=== PATIENT | female | born 1950 | race Caucasian/White ===

== ENCOUNTER 2020-03-15 10:09 | Outpatient (REF) | payer MEDICARE, OTHER, SELFPAY ==
--- NOTE | 2020-03-15 10:17 | MM_ITS ---
EXAMINATION: MM SCREENING DIGITAL BREAST TOMOSYNTHESIS, BILATERAL CLINICAL INFORMATION: Screening. Asymptomatic. The lifetime risk of breast cancer based on the Tyrer-Cuzick Model is 5.4%. COMPARISON: Mammography: March 10, 2019 and studies dating back to May 15, 2011 TECHNIQUE: Digital breast tomosynthesis is performed in both the craniocaudal and mediolateral oblique views along with computer-aided detection (CAD). Synthesized 2D images are generated from the tomosynthesis. FINDINGS: The breasts are almost entirely fatty (ACR BI-RADS breast composition Category a). There are no significant masses, abnormal calcifications, or other abnormalities. MM/MM tomosynthesis screening BI IMPRESSION: There are no significant changes from prior study. ASSESSMENT: BI-RADS 1: Negative RECOMMENDATION: Routine annual mammography screening. This patient's information was entered into a reminder system with a target due date for their next mammogram.
--- NOTE | 2020-03-15 10:18 | MM_ITS ---
EXAMINATION: BONE DENSITOMETRY CLINICAL INDICATION: Osteopenia of left hip. COMPARISON: Previous BD dated 02/23/2017 and baseline BD dated 04/13/2006. TECHNIQUE: Using a [employer] DXA System (software version: 13.1) manufactured by [employer], dual-energy x-ray absorptiometry was performed of the lumbar spine and left hip. The images are of good technical quality. Summary results are attached. FINDINGS: AP SPINE L1-L2 (excluding L3 and L4): The data of L1-L4 has been changed to exclude the L3 and L4 vertebral bodies, because degenerative changes at these levels may cause overestimation of lumbar spine density. Current: BMD 0.992 g/cm2, Z-score -0.5, T-score -1.4, osteopenia, 4.5% decrease from previous, 8.5% decrease from baseline (<5% change is not significant). Prior: BMD 1.039 g/cm2. Baseline: BMD 1.084 g/cm2. LEFT FEMUR, NECK: Current: BMD 0.871 g/cm2, Z-score 0.0, T-score -1.2, osteopenia. Prior: BMD 0.933 g/cm2. Baseline: BMD 1.004 g/cm2. LEFT FEMUR, TOTAL: Current: BMD 0.794 g/cm2, Z-score -0.8, T-score -1.7, osteopenia, 6.8% decrease from previous, 15.7% decrease from baseline (<5% change is not significant). Prior: BMD 0.852 g/cm2. Baseline: BMD 0.942 g/cm2. IDENTIFIED RISK FACTORS: Osteoporosis, history of fracture (adult), menopause. HISTORY OF FRACTURE: Wrist. MEDICATIONS: Calcium supplements or multivitamin, vitamin D. MM/XR DEXA axial skeleton IMPRESSION: 1. DIAGNOSIS: Osteopenia based on the lowest T-score value of -1.7 in the total femur applying World Health Organization criteria. 2. 10-YEAR FRACTURE RISK PREDICTION, FRAX: Major osteoporotic fracture (clinical spine, forearm, hip or shoulder) 13.9%. Hip fracture 1.6%. 3. Treatment Recommendations: NOF guidelines recommend consideration for treatment in postmenopausal women and men age 50 and older presenting with the following: -A hip or vertebral (clinical or morphometric) fracture. -T-score less than or equal to -2.5 at the femoral neck or spine after appropriate evaluation to exclude secondary causes. -Low bone mass at the hip or spine and a 10-year fracture probability by FRAX of greater than or equal to 3% for hip fracture or greater than or equal to 20% for major osteoporotic fracture based on the [place] adapted WHO algorithm. 4. Other Recommendations: All treatment decisions require clinical judgment and consideration of individual patient factors, including patient preferences, comorbidities, previous drug use, risk factors not captured in the FRAX model (e.g. frailty, falls, vitamin D deficiency, increased bone turnover, interval significant decline in bone density) and possible under or overestimation of fracture risk by FRAX. Additional medical evaluation for secondary cause of low bone mineral density may be appropriate. FUTURE SCAN RECOMMENDATION: People with diagnosed cases of osteoporosis or at high risk for fracture should have regular bone mineral density tests. For patients eligible for Medicare, routine testing is allowed once every 2 years. The testing frequency can be increased to one year for patients who have rapidly progressing disease, those who are receiving or discontinuing medical therapy to restore bone mass, or have additional risk factors.
== END 2020-03-15 10:10 | disposition home or self-care (01) ==
LOC: HO.MAMMO 10:09
PROVIDERS: PCP Internal Medicine; Visit Provider Internal Medicine
DX: M85.852 Other specified disorders of bone density and structure, left thigh (principal); Z12.31 Encounter for screening mammogram for malignant neoplasm of breast
CPT/HCPCS: 77063; 77067; 77080

== ENCOUNTER 2020-04-17 06:56 | Outpatient (REF) | payer MEDICARE, OTHER, SELFPAY ==
[2020-04-17 12:00] LABS: Alanine Aminotransferase 16 U/L (0-31); Anion Gap 15 (12-20); Aspartate Amino Transferase 22 U/L (5-31); Blood Urea Nitrogen 22 mg/dL (9-16); Calcium 9.8 mg/dL (8.4-10.2); Carbon Dioxide 28 mmol/L (22-29); Chloride 103 mmol/L (96-108); Cholesterol 186 mg/dL; Estimated Glomerular Filt Rate 49; Glucose Fasting 79 mg/dL (60-99); HDL Cholesterol 67 mg/dL; LDL Cholesterol Calculated 104 mg/dl; Potassium 4.7 mmol/L (3.3-5.1); Sodium 141 mmol/L (135-145); Triglycerides 79 mg/dL
[2020-04-17 12:11] LABS: Free T4 (Free Thyroxine) 1.04 ng/dL (0.71-1.85); Thyroid Stimulating Hormone 5.41 uIU/mL (0.32-4.0)
[2020-04-18 11:42] LABS: Thyroid Peroxidase Antibodies 152 IU/mL (<9)
== END 2020-04-17 06:57 | disposition home or self-care (01) ==
LOC: HO.HMGCLDS 06:56
PROVIDERS: PCP Internal Medicine; Visit Provider Internal Medicine
DX: E78.5 Hyperlipidemia, unspecified (principal); M85.852 Other specified disorders of bone density and structure, left thigh; E06.3 Autoimmune thyroiditis
CPT/HCPCS: 36415; 80048; 80061; 84439; 84443; 84450; 84460; 86376

== ENCOUNTER 2020-08-08 07:00 | Outpatient (REF) | payer MEDICARE, OTHER, SELFPAY ==
[2020-08-08 11:53] LABS: Alanine Aminotransferase 13 U/L (0-31); Anion Gap 13 (12-20); Aspartate Amino Transferase 22 U/L (5-31); Blood Urea Nitrogen 17 mg/dL (9-16); Calcium 9.2 mg/dL (8.4-10.2); Carbon Dioxide 26 mmol/L (22-29); Chloride 107 mmol/L (96-108); Cholesterol 161 mg/dL; Estimated Glomerular Filt Rate 51; Glucose Fasting 80 mg/dL (60-99); HDL Cholesterol 59 mg/dL; LDL Cholesterol Calculated 90 mg/dl; Potassium 4.4 mmol/L (3.3-5.1); Sodium 142 mmol/L (135-145); Triglycerides 61 mg/dL
[2020-08-08 12:03] LABS: Free T4 (Free Thyroxine) 1.05 ng/dL (0.71-1.85); Thyroid Stimulating Hormone 2.95 uIU/mL (0.32-4.0); Vitamin D 25-OH Total 45.7 ng/mL (>30)
== END 2020-08-08 07:01 | disposition home or self-care (01) ==
LOC: HO.HMGCLDS 07:00
PROVIDERS: PCP Internal Medicine; Visit Provider Internal Medicine
DX: E03.9 Hypothyroidism, unspecified (principal); E78.5 Hyperlipidemia, unspecified; M85.852 Other specified disorders of bone density and structure, left thigh; Z78.0 Asymptomatic menopausal state
CPT/HCPCS: 36415; 80048; 80061; 82306; 84439; 84443; 84450; 84460

== ENCOUNTER 2021-03-24 09:21 | Outpatient (REF) | payer MEDICARE, OTHER, SELFPAY ==
--- NOTE | ~2021-03-24 | MM_ITS ---
EXAMINATION: MM SCREENING DIGITAL BREAST TOMOSYNTHESIS, BILATERAL CLINICAL INFORMATION: Screening. Asymptomatic. The lifetime risk of breast cancer based on the Tyrer-Cuzick Model is 11%. COMPARISON: Mammography: 03/15/2020, 03/10/2019, 03/04/2018 TECHNIQUE: Digital breast tomosynthesis is performed in both the craniocaudal and mediolateral oblique views along with computer-aided detection (CAD). Synthesized 2D images are generated from the tomosynthesis. FINDINGS: The breasts are almost entirely fatty (ACR BI-RADS breast composition Category a). There are no significant masses, abnormal calcifications, or other abnormalities. Background stromal and fibroglandular densities are stable. There is no developing density or interval mass or architectural abnormality. No significant changes. MM/MM tomosynthesis screening BI IMPRESSION: No mammographic evidence of malignancy. ASSESSMENT: BI-RADS 1: Negative RECOMMENDATION: Routine annual mammography screening. This patient's information was entered into a reminder system with a target due date for their next mammogram.
== END 2021-03-24 09:22 | disposition home or self-care (01) ==
LOC: HO.MAMMO 09:21
PROVIDERS: PCP Internal Medicine; Visit Provider Internal Medicine
DX: Z12.31 Encounter for screening mammogram for malignant neoplasm of breast (principal)
CPT/HCPCS: 77063; 77067

== ENCOUNTER 2021-09-18 07:44 | Outpatient (REF) | payer MEDICARE, OTHER, SELFPAY ==
--- NOTE | ~2021-09-18 | XR_ITS ---
EXAMINATION: XR KNEE, LEFT XR KNEE AP STANDING CLINICAL INFORMATION: Pain. COMPARISON: None TECHNIQUE: Lateral and axial views of the left knee were obtained. AP bilateral standing view of the knees was obtained. FINDINGS: Bony mineralization is normal. There is marked narrowing of the medial and patellofemoral joint space compartments of the right knee. The lateral compartment is well-maintained. There is a mild varus configuration. No acute fracture, dislocation or joint effusion is seen. There is a bipartite patella, with smoothly marginated secondary ossification centers at the superolateral portion. No foreign body is seen. The lateral and medial joint space compartments of the right knee are well-maintained and show very mild peripheral osteophyte formation. No varus or valgus configuration of the right knee is demonstrated. XR/XR knee LT 2V IMPRESSION: 1. There is tricompartment osteoarthritic change of the left knee, most pronounced in the medial patellofemoral compartments, where it is severe. There is a secondary mild varus configuration. 2. 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 3. There is minimal osteoarthritic change of the lateral medial joint space compartment of the right knee. 4. No fracture, dislocation or joint effusion is seen.
--- NOTE | ~2021-09-18 | XR_ITS ---
EXAMINATION: XR KNEE, LEFT XR KNEE AP STANDING CLINICAL INFORMATION: Pain. COMPARISON: None TECHNIQUE: Lateral and axial views of the left knee were obtained. AP bilateral standing view of the knees was obtained. FINDINGS: Bony mineralization is normal. There is marked narrowing of the medial and patellofemoral joint space compartments of the right knee. The lateral compartment is well-maintained. There is a mild varus configuration. No acute fracture, dislocation or joint effusion is seen. There is a bipartite patella, with smoothly marginated secondary ossification centers at the superolateral portion. No foreign body is seen. The lateral and medial joint space compartments of the right knee are well-maintained and show very mild peripheral osteophyte formation. No varus or valgus configuration of the right knee is demonstrated. XR/XR knee standing BI IMPRESSION: 1. There is tricompartment osteoarthritic change of the left knee, most pronounced in the medial patellofemoral compartments, where it is severe. There is a secondary mild varus configuration. 2. 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 3. There is minimal osteoarthritic change of the lateral medial joint space compartment of the right knee. 4. No fracture, dislocation or joint effusion is seen.
== END 2021-09-18 07:45 | disposition home or self-care (01) ==
LOC: HO.HOSX 07:44
PROVIDERS: Visit Provider Orthopaedic Surgery
DX: M17.12 Unilateral primary osteoarthritis, left knee (principal)
CPT/HCPCS: 73560; 73565; 99202

== ENCOUNTER 2021-11-25 07:09 | Outpatient (REF) | payer MEDICARE, OTHER, SELFPAY ==
[2021-11-25 11:47] LABS: Alanine Aminotransferase 18 U/L (0-31); Anion Gap 14 (12-20); Aspartate Amino Transferase 27 U/L (5-31); Blood Urea Nitrogen 18 mg/dL (9-16); Calcium 9.5 mg/dL (8.4-10.2); Carbon Dioxide 27 mmol/L (22-29); Chloride 106 mmol/L (96-108); Cholesterol 185 mg/dL; Estimated Glomerular Filt Rate 53; Glucose Fasting 90 mg/dL (60-99); HDL Cholesterol 66 mg/dL; LDL Cholesterol Calculated 106 mg/dl; Potassium 4.6 mmol/L (3.3-5.1); Sodium 142 mmol/L (135-145); Triglycerides 69 mg/dL
[2021-11-25 12:12] LABS: Free T4 (Free Thyroxine) 1.13 ng/dL (0.71-1.85); Thyroid Stimulating Hormone 3.67 uIU/mL (0.32-4.0); Vitamin D 25-OH Total 47.1 ng/mL (>30)
[2021-11-29 10:12] LABS: Thyroid Peroxidase Antibodies 65 IU/mL (<9)
== END 2021-11-25 07:10 | disposition home or self-care (01) ==
LOC: HO.HMGCLDS 07:09
PROVIDERS: PCP Internal Medicine; Visit Provider Internal Medicine
DX: E03.9 Hypothyroidism, unspecified (principal); E78.5 Hyperlipidemia, unspecified; M85.852 Other specified disorders of bone density and structure, left thigh; Z78.0 Asymptomatic menopausal state
CPT/HCPCS: 36415; 80048; 80061; 82306; 84439; 84443; 84450; 84460; 86376

== ENCOUNTER 2022-03-30 08:04 | Outpatient (REF) | payer MEDICARE, OTHER, SELFPAY ==
--- NOTE | ~2022-03-30 | MM_ITS ---
EXAMINATION: MM SCREENING DIGITAL BREAST TOMOSYNTHESIS, BILATERAL CLINICAL INFORMATION: Screening. Asymptomatic. The lifetime risk of breast cancer based on the Tyrer-Cuzick Model is 10%. COMPARISON: Mammography: 03/24/2021, 03/15/2020, 03/10/2019 TECHNIQUE: Digital breast tomosynthesis is performed in both the craniocaudal and mediolateral oblique views along with computer-aided detection (CAD). Synthesized 2D images are generated from the tomosynthesis. FINDINGS: The breasts are almost entirely fatty (ACR BI-RADS breast composition Category a). There are no significant masses, abnormal calcifications, or other abnormalities. Background stromal markings and fibroglandular densities are similar to prior studies. No developing density or architectural abnormality. The axilla are unremarkable. No significant changes. MM/MM tomosynthesis screening BI IMPRESSION: No mammographic evidence of malignancy. ASSESSMENT: BI-RADS 1: Negative RECOMMENDATION: Routine annual mammography screening. This patient's information was entered into a reminder system with a target due date for their next mammogram.
== END 2022-03-30 08:05 | disposition home or self-care (01) ==
LOC: HO.MAMMO 08:04
PROVIDERS: PCP Internal Medicine; Visit Provider Internal Medicine
DX: Z12.31 Encounter for screening mammogram for malignant neoplasm of breast (principal)
CPT/HCPCS: 77063; 77067

== ENCOUNTER 2022-09-14 08:16 | Outpatient (AMB) | payer MEDICARE, OTHER, SELFPAY ==
[2022-09-14 08:25] VITALS: BP 126/86; PULSE 82; O2SAT 99; BMI 33.4
--- NOTE | 2022-09-14 08:25 | A.OFFVIS_ITS ---
Intake Vital Signs 09/14/22 08:25 Height 5 ft 4 in Weight 194 lb 5 oz BMI 33.4 BP 126/86 Blood Pressure Location Lt brachial Position Sitting Pulse 82 Pulse Source Pulse Oximeter Pulse Oximetry (%) 99 Oxygen Delivery Method Room Air Intake Visit Reasons: AWV Intake Note: Pt is here for her AWV Allergies No Known Allergies Allergy (Verified 09/14/22 08:48) Medication List - Last Reconciled 09/14/22 by Audrey Teran MD acetaminophen ER (Tylenol Arthritis Pain) 650 mg PO Q12H cholecalciferol (vitamin D3) 25 mcg PO DAILY collagen (bovine) 100% 1 appl topical DAILY qfsymbvi-qgxgbeg-cyff-lutein tabs PO rosuvastatin 10 mg PO DAILY Synthroid (levothyroxine) 50 mcg PO QAM NS turmeric mg PO HPI AWV HPI Details AWV ? 71-year-old lady presents for initial annual wellness visit.? She has dyslipidemia currently stable controlled on rosuvastatin, Synthroid for her hypothyroidism, which is stable and controlled on present treatment. She is up-to-date with her screening mammogram done 03/30/2022 which showed normal findings, last bone density was done 03/15/2020 which showed presence of osteopenia in both lumbar spine and left femoral neck and left femur. Up-to-date with her screening colonoscopy done 01/19/2017 which showed negative findings, to be repeated again in 2026. Up-to-date with all her COVID vaccination including booster, gets yearly flu shots, up-to-date with her pneumococcal vaccinations and Shingrix as well as Tdap. Latest fasting lipids and fasting blood sugar done 11/25/2021 showed normal results. ? Medical / Social History Reviewed? Past Medical History ?Yes . ? [place] of Care / Care Team list updated ?Yes . ? Surgical/Hospitalization History ?Yes . ? Current Medications (including OTC and supplements) ?Yes . ? Family History ?Yes . ? Tobacco Control form ?Yes . ? AUDIT-C (Alcohol use) form ?Yes . ? Illicit drug use in Social History ?Yes . ? Current diagnosis of depression? ?No ? Appropriate PHQ2/PHQ9 completed ?Yes . ? Data entered by ?Orthopaedic Surgeon and reviewed by provider ? Fall Risk ? Fall History? Have you had any falls with injury in the past year? ?No . ? Have you had two or more falls in the past year? ?No . ? Fall Risk Assessment: ?No falls in the past year . ? HRA filled out by the patient, reviewed by Provider and scanned. ?AWV ? Balance? Romberg ?Yes . ? Tandem walk ?Yes . ? Walk and Turn ?Yes . ? Rise from sit to stand ?Yes . ?Vision? Corrective lens ?Yes ? Vision screen ? Up-to-date, sees Dr Darling ?Hearing? Whisper test ?pass . ?Written Plan?Completed. See Patient Documents.? [facility] Medical History (Updated 09/14/22 @ 08:59 by Audrey Teran MD) Acquired hypothyroidism Dyslipidemia Left radial fracture Osteopenia of left femoral neck Osteopenia of multiple sites Postmenopause Surgical History History of cataract surgery Family History Father No problems noted. Mother Alzheimer's disease Colon cancer Hyperlipidemia Social History Alcohol intake: current Patient Tobacco Use Status: Never used Tobacco Questionnaire Medicare Wellness Checkup [age] What gender do you identify with?: female During the past 4 weeks, how much have you been bothered by emotional problems such as feeling anxious, depressed, irritable, sad or downhearted, and blue?: not at all During the past 4 weeks, has your physical & emotional health limited your social activities with family, friends, neighbors, or groups?: not at all During the past 4 weeks, how much bodily pain have you generally had?: very mild pain During the past 4 weeks, was someone available to help you if you needed & wanted help?: yes, as much as I wanted During the past 4 weeks, what was the hardest physical activity you could do for at least 2 minutes?: moderate Can you get to places out of walking distance without help? (For eg., can you travel alone on buses, taxis or drive your car?): Yes Can you go shopping for groceries or clothes without someone's help?: Yes Can you prepare your own meals?: Yes Can you do your housework without help?: Yes Because of any health problems, do you need the help of another person with your personal care needs such as eating, bathing, dressing or getting around the house?: No Can you handle your own money without help?: Yes During the past 4 weeks, how would you rate your health in general?: good During the past 4 weeks how have things been going for you?: pretty well Are you having difficulties driving your car?: no Do you always fasten your seat belt when you are in a car?: yes, usually During past 4 weeks, have you been bothered by the following: never: Falling or dizzy when standing up, Sexual problems?, Trouble eating well?, Teeth or denture problems? and Problems using the telephone? and seldom: Tiredness or fatigue? Have you fallen 2 or more times in the past year?: No Are you afraid of falling?: No Are you a smoker?: no During the past 4 weeks, how many drinks of wine, beer, or other alcoholic beverages did you have?: 1 drink or less per week Do you exercise for about 20 minutes 3 or more times a week?: no, I usually do not exercise this much Have you been given information to help with the following?: yes: Hazards in your house that might hurt you? and yes: Keeping track of your medications? How often do you have trouble taking medicines the way you have been told to take them?: I always take medicine as prescribed How confident are you that you can control & manage most of your health problems?: very confident What is your race?: White Mini Mental State Exam (MMSE) Orientation What is the (year) (season) (date) (day) (month)?: year (2022), season (Summer), date (09/14/2022), day (Wednesday) and month (August) Where are we (state) (county) (town or city) (hospital) (floor)?: state ([place]), county ([place]), town or city ([place]) and hospital/clinic ([facility]) Score Score: 9 Activity of Daily Living Bathing - sponge bath, tub bath or shower: receives no assistance (gets in/out by self, if usual bathing means Dressing - getting clothes from closets & drawers, including inner/outer garments & fasteners.: gets clothes & gets completely dressed without help Toileting - going to the 'toilet room' for urine/bowel elimination & cleaning self/arranging clothes: goes to toilet room, cleans self, arranges clothes without help Transfer: moves in & out of bed and chair without help (may use support object) Continence: controls urination/bowel movements completely by self Feeding: feeds self without help Total Score: 0 Information obtained from: patient Using telephone: independent Traveling: independent Shopping: independent Preparing meals: independent Housework: independent Taking medicine: independent Managing money: independent PHQ-9 Over the last 2 weeks, how often have you been bothered by any of the following problems? 1. Little interest or pleasure in doing things: not at all 2. Feeling down, depressed, or hopeless: not at all 3. Trouble falling or staying asleep, or sleeping too much: not at all 4. Feeling tired or having little energy: not at all 5. Poor appetite or overeating: not at all 6. Feeling bad about yourself - or that you are a failure or have let yourself or your family down: not at all 7. Trouble concentrating on things, such as reading the newspaper or watching television: not at all 8. Moving or speaking so slowly that other people could have noticed. Or the opposite - being so fidgety or restless that you have been moving around a lot more than usual: not at all 9. Thoughts that you would be better off or of hurting yourself in some way: not at all Total score: 0 Depression Screening Interpretation: Negative 58359 - PHQ-9 Billing: Yes Source: Developed by Drs. Ramón Hou, Yolis Holden, Gordo Alvarado and colleagues, with an educational yadi from [employer]. Physical Exam Vital Signs: Last Vital Signs Pulse 82 09/14/22 08:25 BP 126/86 09/14/22 08:25 Pulse Ox 99 09/14/22 08:25 Oxygen Delivery Method Room Air 09/14/22 08:25 BMI result Body Mass Index 33.4 Assessment & Plan Assessment & Plan (1) Encounter for initial annual wellness visit (AWV) in Medicare patient: Code(s): Z00.00 - Encounter for general adult medical examination without abnormal findings Plan: Medical wellness checklist reviewed, discussed with patient and updated. She is due for repeat colonoscopy in 2026, up-to-date with all her vaccinations and mammogram, bone density scan ordered. Patient already completed already MOLST form will provide a copy of her healthcare proxy. (2) Osteoarthritis of left knee: Code(s): M17.12 - Unilateral primary osteoarthritis, left knee Plan: Takes acetaminophen as needed, continue with regular exercise. (3) Osteopenia of multiple sites: Code(s): M85.89 - Other specified disorders of bone density and structure, multiple sites Plan: Bone density scan ordered to be scheduled together with mammogram 04/01/2023. Continue taking collagen, and vitamin-D supplements as well as adequate calcium from dietary sources, do regular weight-bearing exercises. (4) Acquired hypothyroidism: Code(s): E03.9 - Hypothyroidism, unspecified Plan: Continued on Synthroid 50 mcg daily in a.m., will repeat another thyroid level (5) Dyslipidemia: Code(s): E78.5 - Hyperlipidemia, unspecified Plan: Continue with rosuvastatin mg daily, last fasting lipids were within normal. Will recheck another fasting lipid panel Orders: Orders XR DEXA axial skeleton 04/01/23 M85.89 - Other specified disorders of bone density and structure, multiple sites, Z13.820 - Encounter for screening for ost eoporosis, Z78.0 - Asymptomatic menopausal state, Z87.81 - Personal history of (healed) traumatic fracture Quality Reporting (2019) Depression/Bipolar (159/160/161/177) PHQ-9: Total score: 0 Coding Level of Care Code Medicare First (G0438) Diagnoses Encounter for initial annual wellness visit (AWV) in Medicare patient Z00.00 Osteoarthritis of left knee M17.12 Osteopenia of multiple sites M85.89 Acquired hypothyroidism E03.9 Dyslipidemia E78.5 CPT Codes Advance Care Planning - Time spent: 1-15 minutes, on File ([id number]) Advance Care Planning Advance Care Planning discussion: Completed/Scanned Date of discussion: 09/14/22 Who was present: Patient Forms completed: MOLST (Already scanned in chart has healthcare proxy at home will provide a copy) Time spent: 1-15 minutes, on File Actual minutes spent: 15
== END 2022-09-14 13:24 | disposition home or self-care (01) ==
PROVIDERS: Visit Provider Internal Medicine
DX: Z00.00 Encounter for general adult medical examination without abnormal findings (principal); M17.12 Unilateral primary osteoarthritis, left knee; M85.89 Other specified disorders of bone density and structure, multiple sites; E03.9 Hypothyroidism, unspecified; E78.5 Hyperlipidemia, unspecified
CPT/HCPCS: 1123F; G0438; G0439

== ENCOUNTER 2022-09-18 07:20 | Outpatient (REF) | payer MEDICARE, OTHER, SELFPAY ==
[2022-09-18 15:08] LABS: Alanine Aminotransferase 15 U/L (0-31); Anion Gap 14 (12-20); Aspartate Amino Transferase 23 U/L (5-31); Blood Urea Nitrogen 23 mg/dL (9-16); Calcium 9.7 mg/dL (8.4-10.2); Carbon Dioxide 24 mmol/L (22-29); Chloride 108 mmol/L (96-108); Cholesterol 180 mg/dL; Estimated Glomerular Filt Rate 54; Glucose Fasting 86 mg/dL (60-99); HDL Cholesterol 65 mg/dL; LDL Cholesterol Calculated 102 mg/dl; Potassium 4.3 mmol/L (3.3-5.1); Sodium 142 mmol/L (135-145); Triglycerides 65 mg/dL
[2022-09-18 15:27] LABS: Thyroid Stimulating Hormone 5.53 uIU/mL (0.32-4.0); Vitamin D 25-OH Total 58.4 ng/mL (>30)
== END 2022-09-18 07:21 | disposition home or self-care (01) ==
LOC: HO.HMGCLDS 07:20
PROVIDERS: PCP Internal Medicine; Visit Provider Internal Medicine
DX: E03.9 Hypothyroidism, unspecified (principal); E78.5 Hyperlipidemia, unspecified; M85.89 Other specified disorders of bone density and structure, multiple sites; Z78.0 Asymptomatic menopausal state
CPT/HCPCS: 36415; 80048; 80061; 82306; 84443; 84450; 84460

== ENCOUNTER 2023-03-13 07:22 | Outpatient (REF) | payer MEDICARE, OTHER, SELFPAY ==
[2023-03-13 12:20] LABS: Alanine Aminotransferase 20 U/L (0-31); Aspartate Amino Transferase 27 U/L (5-31); Cholesterol 178 mg/dL (<200); HDL Cholesterol 55 mg/dL (>40); LDL Cholesterol Calculated 104 mg/dL (<100); Triglycerides 95 mg/dL (<150)
[2023-03-13 12:29] LABS: Free T4 (Free Thyroxine) 0.96 ng/dL (0.71-1.85); Thyroid Stimulating Hormone 4.33 uIU/mL (0.32-4.0); Vitamin D 25-OH Total 55.2 ng/mL (>30)
== END 2023-03-13 07:23 | disposition home or self-care (01) ==
LOC: HO.HMGCLDS 07:22
PROVIDERS: PCP Internal Medicine; Visit Provider Internal Medicine
DX: E78.5 Hyperlipidemia, unspecified (principal); M85.89 Other specified disorders of bone density and structure, multiple sites; E03.9 Hypothyroidism, unspecified; Z78.0 Asymptomatic menopausal state
CPT/HCPCS: 36415; 80061; 82306; 84439; 84443; 84450; 84460

== ENCOUNTER 2023-04-01 08:16 | Outpatient (REF) | payer MEDICARE, OTHER, SELFPAY ==
--- NOTE | ~2023-04-01 | MM_ITS ---
EXAMINATION: BONE DENSITOMETRY CLINICAL INDICATION: Osteopenia. COMPARISON: Previous BD dated 03/15/2020 and baseline BD dated 04/13/2006. TECHNIQUE: Using a [employer] DXA System (software version: 13.1) manufactured by [employer], dual-energy x-ray absorptiometry was performed of the lumbar spine and left hip. The images are of good technical quality. Summary results are attached. FINDINGS: LEFT FEMUR, NECK: Current: BMD 0.820 g/cm2, Z-score -0.2, T-score -1.6, osteopenia. Prior: BMD 0.871 g/cm2. Baseline: BMD 1.004 g/cm2. LEFT FEMUR, TOTAL: Current: BMD 0.762 g/cm2, Z-score -0.8, T-score -1.9, osteopenia, 4.0% decrease from previous, 19.1% decrease from baseline (<5% change is not significant). Prior: BMD 0.794 g/cm2. Baseline: BMD 0.942 g/cm2. AP SPINE L1-L2 (excluding L3 and L4): The data of L1-L4 has been changed to exclude the L3 and L4 vertebral bodies, because degenerative sclerosis at these levels may cause overestimation of lumbar spine density. Current: BMD 1.053 g/cm2, Z-score 0.0, T-score -0.9, normal, 6.1% increase from previous, 2.9% decrease from baseline (<5% change is not significant). Prior: BMD 0.992 g/cm2. Baseline: BMD 1.084 g/cm2. IDENTIFIED RISK FACTORS: Menopause, history of fracture (adult). HISTORY OF FRACTURE: Wrist. MEDICATIONS: Multivitamin, vitamin D. MM/XR DEXA axial skeleton IMPRESSION: 1. DIAGNOSIS: Osteopenia based on the lowest T-score value of -1.9 in the total femur applying World Health Organization criteria. 2. 10-YEAR FRACTURE RISK PREDICTION, FRAX: Major osteoporotic fracture (clinical spine, forearm, hip or shoulder) 16.0%. Hip fracture 2.8%. 3. Treatment Recommendations: NOF guidelines recommend consideration for treatment in postmenopausal women and men age 50 and older presenting with the following: -A hip or vertebral (clinical or morphometric) fracture. -T-score less than or equal to -2.5 at the femoral neck or spine after appropriate evaluation to exclude secondary causes. -Low bone mass at the hip or spine and a 10-year fracture probability by FRAX of greater than or equal to 3% for hip fracture or greater than or equal to 20% for major osteoporotic fracture based on the [place] adapted WHO algorithm. 4. Other Recommendations: All treatment decisions require clinical judgment and consideration of individual patient factors, including patient preferences, comorbidities, previous drug use, risk factors not captured in the FRAX model (e.g. frailty, falls, vitamin D deficiency, increased bone turnover, interval significant decline in bone density) and possible under or overestimation of fracture risk by FRAX. Additional medical evaluation for secondary cause of low bone mineral density may be appropriate. FUTURE SCAN RECOMMENDATION: People with diagnosed cases of osteoporosis or at high risk for fracture should have regular bone mineral density tests. For patients eligible for Medicare, routine testing is allowed once every 2 years. The testing frequency can be increased to one year for patients who have rapidly progressing disease, those who are receiving or discontinuing medical therapy to restore bone mass, or have additional risk factors.
== END 2023-04-01 08:17 | disposition home or self-care (01) ==
LOC: HO.MAMMO 08:16
PROVIDERS: PCP Internal Medicine; Visit Provider Internal Medicine
DX: Z12.31 Encounter for screening mammogram for malignant neoplasm of breast (principal); Z13.820 Encounter for screening for osteoporosis; Z78.0 Asymptomatic menopausal state; M85.89 Other specified disorders of bone density and structure, multiple sites; Z87.81 Personal history of (healed) traumatic fracture
CPT/HCPCS: 77063; 77067; 77080

== ENCOUNTER → 2023-04-01 09:00 | Outpatient (BNV) | payer MEDICARE, OTHER, SELFPAY | PROVIDERS: PCP Internal Medicine; Visit Provider Radiology Diagnostic Radiology | DX: Z12.31 Encounter for screening mammogram for malignant neoplasm of breast (principal) | CPT/HCPCS: 77063; 77067 ==

== ENCOUNTER 2023-04-14 10:22 | Outpatient (AMB) | payer MEDICARE, OTHER, SELFPAY ==
[2023-04-14 10:44] VITALS: BP 124/72; PULSE 95; O2SAT 97; BMI 33.3
--- NOTE | 2023-04-14 10:44 | MHC.PC.OV ---
Vital Signs 04/14/23 10:44 Height 5 ft 4 in Weight 194 lb BMI 33.3 BP 124/72 Blood Pressure Location Lt brachial Position Sitting Pulse 95 Pulse Source Pulse Oximeter Pulse Oximetry (%) 97 Intake Visit Reasons: f/u labs Intake Note: Pt is here today for her lab results Allergies No Known Allergies Allergy (Verified 04/14/23 11:08) Medication List - Last Reconciled 04/14/23 by Audrey Teran MD acetaminophen ER (Tylenol Arthritis Pain) 650 mg PO Q12H cholecalciferol (vitamin D3) 25 mcg PO DAILY collagen (bovine) 100% 1 appl topical DAILY xbykbacx-vvtocls-xuoa-lutein tabs PO rosuvastatin 10 mg PO DAILY Synthroid (levothyroxine) 50 mcg PO QAM NS turmeric mg PO Tobacco use date assessed: 04/14/23 Fall risk assessment: No Falls in past year Last assessed Fall Risk: 04/14/23 Dental Screening Dental Screen Date: 04/14/23 Did you have a dental visit in the last 12 months?: Yes Did you have a dental problem in the last 6 months where you did not have access to dental care?: No Was dental information given to patient?: Patient has dentist HPI f/u labs HPI Details 73-year-old lady with hypothyroidism and hyperlipidemia, here today for follow-up. She has been feeling well, stays active but does not walk as much as she was doing during the summer time due to the cold weather, has been compliant with healthy eating habits. Recent fasting labs done showed thyroid levels and cholesterol levels are all within normal limits. She has been compliant with taking her medications [facility] Medical History (Updated 09/14/22 @ 08:59 by Audrey Teran MD) Osteopenia of multiple sites Left radial fracture Postmenopause Osteopenia of left femoral neck Dyslipidemia Acquired hypothyroidism Surgical History History of cataract surgery Family History Father No problems noted. Mother Alzheimer's disease Colon cancer Hyperlipidemia Social History Housing: House Alcohol intake: current Patient Tobacco Use Status: Never used Tobacco service: No Current occupational status: retired Cognitive needs: No Hearing needs: No Vision needs: Yes Questionnaire PHQ-9 Over the last 2 weeks, how often have you been bothered by any of the following problems? 1. Little interest or pleasure in doing things: not at all 2. Feeling down, depressed, or hopeless: not at all 3. Trouble falling or staying asleep, or sleeping too much: not at all 4. Feeling tired or having little energy: not at all 5. Poor appetite or overeating: not at all 6. Feeling bad about yourself - or that you are a failure or have let yourself or your family down: not at all 7. Trouble concentrating on things, such as reading the newspaper or watching television: not at all 8. Moving or speaking so slowly that other people could have noticed. Or the opposite - being so fidgety or restless that you have been moving around a lot more than usual: not at all 9. Thoughts that you would be better off or of hurting yourself in some way: not at all Total score: 0 Depression Screening Interpretation: Negative Depression Screening Done: Yes 08257 - PHQ-9 Billing: Yes Source: Developed by Drs. Ramón Hou, Yolis Holden, Gordo Alvarado and colleagues, with an educational yadi from [employer]. Thrive Questionnaire Date Thrive assessed: 04/14/23 I am a: Patient What is your living situation today?: I have a steady place to live Within the past 12 months, did the food you bought not last and you didn't have the money to get more?: Never true Within the past 12 months, did you worry whether your food would run out before you got money to buy more?: Never true Do you have trouble paying for medicines?: No Do you have trouble getting transportation to medical appointments?: No Do you have trouble paying your heating and electricity bill?: No Do you have trouble taking care of your child, family member or friend?: No Do you have trouble with day-to-day activities such as bathing, preparing meals, shopping, managing finances, etc.?: No Are you currently unemployed and looking for a job?: No Are you interested in more education?: No THRIVE Score: 0 AUDIT C Alcohol Use Questionnaire (AUDIT-C) 1. How often do you have a drink containing alcohol?: Monthly or less 2. How many drinks containing alcohol do you have on a typical day when you are drinking?: 1 or 2 3. How often do you have six or more drinks on one occasion?: Never Total Score: 1 KATE-7 AMB Questionnaire KATE-7 Date KATE - 7 assessed: 04/14/23 Feeling nervous, anxious, or on edge: 0 = Not at all Not being able to stop or control worryin = Not at all Worrying too much about different things: 0 = Not at all Trouble relaxin = Not at all Being so restless that it is hard to sit still: 0 = Not at all Becoming easily annoyed or irritable: 0 = Not at all Feeling afraid as if something awful might happen: 0 = Not at all Total KATE-7 score (0-4 normal; 5-9 mild; 10-14 moderate; 15-21 severe): 0 Source: Developed by Drs. Ramón Hou, Yolis Holden, Gordo Alvarado and colleagues, with an educational yadi from [employer]. KATE-7 Assessment Billing KATE-7 Assessment Tool: KATE-7 Assessment 37022 Review of Systems Const Denies body aches, Denies fatigue, Denies fever(s), Denies headache(s) and Denies weakness ENT Denies dizziness, Denies headache(s), Denies nasal congestion, Denies nasal discharge and Denies sore throat Card Denies chest pain, Denies lightheadedness, Denies palpitations and Denies dyspnea Resp Denies chest congestion, Denies cough, Denies dyspnea and Denies wheezing GI Denies abdominal pain, Denies hematochezia, Denies change in bowel habits, Denies heartburn and Denies nausea Denies urinary frequency, Denies dysuria and Denies urinary urgency Musc Denies back pain, Denies myalgias, Denies arthralgias, Denies joint swelling and Reports stiffness Skin/Breast Denies lesions and Denies rash Neuro Denies dizziness, Denies headache(s) and Denies weakness Psych Reports as per HPI Endo Denies fatigue, Denies polydipsia, Denies polyuria and Denies palpitations Bakari/Lymph Denies easy bruising Aller/Immun Denies seasonal rhinorrhea and Denies wheezing Physical exam (Primary Care) Vital Signs: Last Vital Signs Pulse 95 04/14/23 10:44 BP 124/72 04/14/23 10:44 Pulse Ox 97 04/14/23 10:44 BMI result Body Mass Index 33.3 Tobacco/Smoking Status: Tobacco use Status Tobacco use date assessed 04/14/23 04/14/23 10:49 Patient Tobacco Use Status Never used Tobacco 04/14/23 10:45 PHQ-9: PHQ-9 Score PHQ-9: Total score 0 04/14/23 11:26 Depression Screening Interpretation: Negative Thrive Assessment: Date of Thrive Assessment Date Thrive assessed 04/14/23 04/14/23 10:53 Const General: comfortable, no acute distress and alert Orientation/consciousness: patient oriented x3 HENMT Ears: external ears normal, TM's normal bilaterally and EAC's normal General nose exam: Normal external nose present Mouth: Normal oral and palatal mucosa present, oropharynx normal and moist mucous membranes Eyes General: appearance normal, both eyes and all related structures Pupils: Equal, round and reactive pupils present EOM: EOMs intact bilaterally Neck Neck: Yes full ROM, Yes no lymphadenopathy and Yes supple Resp Effort & Inspection: normal respiratory effort and able to speak in complete sentences Auscultation: clear to auscultation bilaterally Cardio Rate: regular rate Rhythm: regular rhythm Heart sounds: S1 normal heart sound present and S2 normal heart sound present GI Palpation (GI): Soft to palpation, nontender and no masses Auscultation: normal bowel sounds Back/Spine/Pelvis Back: No back tenderness Skin General skin exam: no rashes or lesions noted Neuro General: patient oriented x3, gait normal, tone normal, moves all extremities, Normal light touch and pain sensation and no focal motor deficits Cranial nerves: Yes CN's II-XII intact bilaterally and Yes Equal, round and reactive pupils present Cognition (Neuro): normal cognition Extrem General: Yes full ROM, Yes no joint enlargement, Yes no clubbing, cyanosis or edema and Yes no calf tenderness Psych Appearance: grossly normal and well kempt Mental Status: mental status grossly normal Speech and movement: Normal speech and movement present Affect: normal affect Attitude: cooperative Thought process: Normal thought process present Thought content: Normal thought content present Results Reviewed Results Reviewed: Name: CarlyndesiSummer Claritza Age/Sex: 72/F [facility] 1950 [id number]#: [id number] Attend Dr: Audrey Teran MD Re03/13/23 Status: DEP REF Location: [facility] Disch: SPEC : [id number] [place]: 03/13/23 STATUS: COMP REQ : [id number] RECD: 03/13/23-[address]: Audrey Teran MD COMP: 03/13/23 ENTERED: 03/13/[address] [facility] [address]: ORDERED: AST, ALT, Lipid Panel, Vitamin D 25-OH, Free T4, TSH Test Result Flag Reference AST (GOT) 27 5-31 U/L ALT (GPT) 20 0-31 U/L Triglyceride 95 <150 mg/dL Desirable Triglyceride: less than 150 mg/dL Borderline High Triglyceride 150-199 mg/dL High Triglyceride: 200-499 mg/dL Very High Triglyceride: greater than or equal to 5OO mg/dL Cholesterol 178 <200 mg/dL Desirable Cholesterol: less than 200 mg/dL Borderline High Cholesterol: 200-239 mg/dL High Cholesterol: greater than 239 mg/dL LDL Calculated 104 H <100 mg/dL Desirable LDL: less than 100 mg/dL Near Optimal/Above Optimal LDL: 110-129 mg/dL Borderline High LDL: 130-159 mg/dL High LDL: 160-189 mg/dL Very High LDL: greater than or equal to 190 mg/dL HDL 55 >40 mg/dL Desirable HDL: greater than 40 mg/dL Note: This HDL assay may give artificially low results in patients with liver disease. Vit D 25-OH Tot 55.2 >30 ng/mL Health Based Reference Values* < 20 ng/mL Deficient 20-30 ng/mL Insufficient > 30 ng/mL Sufficient *Marcos VEGAS. N Engl J Med. 2007;357:266-280 Care must be taken in interpreting Vitamin D results from different laboratories and methodologies. Published data demonstrated that results from patients undergoing hemodialysis may show a negative bias when tested with various automated 25-OH vitamin D assays when compared to LC-MS/MS. When testing samples from patients whose predominant form of Vitamin D is Vitamin D2, such as patients receiving Vitamin D2 supplementation, results that are subtherapeutic should be confirmed with another method such as LC-MS/MS. Free T4 0.96 0.71-1.85 ng/dL TSH 3rd Gen. 4.33 H 0.32-4.0 uIU/mL Note: A sustained TSH level above 2.5 uIU/mL may warrant further investigation. TSH 3rd Generation ([facility]) END OF REPORT Assessment and Plan Assessment & Plan (1) Osteopenia of multiple sites: Code(s): M85.89 - Other specified disorders of bone density and structure, multiple sites Plan: Continue regular weight-bearing exercise, take adequate calcium from dietary sources and continue with taking eqbq-inr-prailfs cholecalciferol or vitamin D3 at 25 mcg once a day latest labs showed vitamin-D level within normal limits. (2) Dyslipidemia: Code(s): E78.5 - Hyperlipidemia, unspecified Plan: Reviewed recent fasting lipid profile with patient with levels at goal . Continue with rosuvastatin 10 mg once a , in addition to adherence to low-cholesterol diet and regular exercise, at least 30 minutes 3 to 4 times a week. Advised patient to make healthy food choices, eat more fruits, vegetables, whole grains, wild caught fish and low-fat dairy. Limit amount of meat and fried or fatty food products, as well as processed foods and fast foods. Follow-up scheduled with repeat fasting lipid panel in 6 months. (3) Acquired hypothyroidism: Code(s): E03.9 - Hypothyroidism, unspecified Plan: Thyroid levels are within normal limits, continue with Synthroid, brand name only 50 mcg per tablet taken once a day in a.m. 1 hour before her breakfast peer Orders: Orders Alanine Aminotransferase 10/17/23 E03.9 - Hypothyroidism, unspecified, E78.5 - Hyperlipidemia, unspecified, M85.89 - Other specified disorders of bone density and structure, multiple sites, Z78.0 - Asymptomatic menopausal state Thyroid Stimulating Hormone 10/17/23 E03.9 - Hypothyroidism, unspecified, E78.5 - Hyperlipidemia, unspecified, M85.89 - Other specified disorders of bone density and structure, multiple sites, Z78.0 - Asymptomatic menopausal state Basic Metabolic Panel Fasting 10/17/23 E03.9 - Hypothyroidism, unspecified, E78.5 - Hyperlipidemia, unspecified, M85.89 - Other specified disorders of bone density and structure, multiple sites, Z78.0 - Asymptomatic menopausal state Vitamin D 25-OH Total 10/17/23 E03.9 - Hypothyroidism, unspecified, E78.5 - Hyperlipidemia, unspecified, M85.89 - Other specified disorders of bone density and structure, multiple sites, Z78.0 - Asymptomatic menopausal state Aspartate Amino Transferase 10/17/23 E03.9 - Hypothyroidism, unspecified, E78.5 - Hyperlipidemia, unspecified, M85.89 - Other specified disorders of bone density and structure, multiple sites, Z78.0 - Asymptomatic menopausal state Free T4 (Free Thyroxine) 10/17/23 E03.9 - Hypothyroidism, unspecified, E78.5 - Hyperlipidemia, unspecified, M85.89 - Other specified disorders of bone density and structure, multiple sites, Z78.0 - Asymptomatic menopausal state Lipid Panel 10/17/23 E03.9 - Hypothyroidism, unspecified, E78.5 - Hyperlipidemia, unspecified, M85.89 - Other specified disorders of bone density and structure, multiple sites, Z78.0 - Asymptomatic menopausal state Coding Level of Care Code Est Pt Level 4 (59232) Diagnoses Osteopenia of multiple sites M85.89 Dyslipidemia E78.5 Acquired hypothyroidism E03.9 Additional Codes KATE-7 Assessment Billing - KATE-7 Assessment Tool: KATE-7 Assessment 15356 ([id number])
== END 2023-04-14 11:56 | disposition home or self-care (01) ==
PROVIDERS: PCP Internal Medicine; Visit Provider Internal Medicine
DX: M85.89 Other specified disorders of bone density and structure, multiple sites (principal); E78.5 Hyperlipidemia, unspecified; E03.9 Hypothyroidism, unspecified
CPT/HCPCS: 99214

== ENCOUNTER 2023-10-14 07:07 | Outpatient (REF) | payer MEDICARE, OTHER, SELFPAY ==
[2023-10-14 10:31] LABS: Alanine Aminotransferase 16 U/L (0-31); Anion Gap 11 (12-20); Aspartate Amino Transferase 22 U/L (5-31); Blood Urea Nitrogen 16 mg/dL (9-16); Calcium 9.6 mg/dL (8.4-10.2); Carbon Dioxide 26 mmol/L (22-29); Chloride 109 mmol/L (96-108); Cholesterol 167 mg/dL (<200); Estimated Glomerular Filt Rate 50; Glucose Fasting 91 mg/dL (60-99); HDL Cholesterol 59 mg/dL (>40); LDL Cholesterol Calculated 95 mg/dL (<100); Sodium 142 mmol/L (135-145); Triglycerides 68 mg/dL (<150)
[2023-10-14 10:36] LABS: Free T4 (Free Thyroxine) 0.93 ng/dL (0.71-1.85); Thyroid Stimulating Hormone 4.47 uIU/mL (0.32-4.0); Vitamin D 25-OH Total 77.2 ng/mL (>30)
== END 2023-10-14 07:08 | disposition home or self-care (01) ==
LOC: HO.HMGCLDS 07:07
PROVIDERS: PCP Internal Medicine; Visit Provider Internal Medicine
DX: M85.89 Other specified disorders of bone density and structure, multiple sites (principal); E78.5 Hyperlipidemia, unspecified; E03.9 Hypothyroidism, unspecified; Z78.0 Asymptomatic menopausal state
CPT/HCPCS: 36415; 80048; 80061; 82306; 84439; 84443; 84450; 84460

== ENCOUNTER 2023-10-22 10:27 | Outpatient (AMB) | payer MEDICARE, OTHER, SELFPAY ==
--- NOTE | 2023-10-22 10:25 | MHC.PC.OV ---
Intake Visit Reasons: f/u labs Iphone [phone] Intake Note: Pt is having a telehealth visit to discuss lab results Allergies No Known Allergies Allergy (Verified 04/14/23 11:08) Medication List - Last Reconciled 10/22/23 by Audrey Teran MD acetaminophen ER (Tylenol Arthritis Pain) 650 mg PO Q12H cholecalciferol (vitamin D3) 25 mcg PO DAILY collagen (bovine) 100% 1 appl topical DAILY fjosxxyr-vpclhwl-wapu-lutein tabs PO rosuvastatin 10 mg PO DAILY Synthroid (levothyroxine) 50 mcg PO QAM NS turmeric mg PO Tobacco use date assessed: 10/22/23 Fall risk assessment: No Falls in past year Last assessed Fall Risk: 10/22/23 Dental Screening Dental Screen Date: 10/22/23 Did you have a dental visit in the last 12 months?: Yes Did you have a dental problem in the last 6 months where you did not have access to dental care?: No Was dental information given to patient?: Patient has dentist HPI f/u labs Iphone [phone] HPI Details Telehealth visit made with 73-year-old lady for follow-up on her lipids and hypothyroidism. She has been taking rosuvastatin 10 mg daily and Synthroid 50 mg once a day in a.m. an hour before breakfast. Patient states that she has been feeling well, no complaints at present time. Has been compliant with her medications and has been following recommended diet and staying active this past summer. [facility] Medical History Osteopenia of multiple sites Left radial fracture Postmenopause Osteopenia of left femoral neck Dyslipidemia Acquired hypothyroidism Surgical History History of cataract surgery Family History Father No problems noted. Mother Alzheimer's disease Colon cancer Hyperlipidemia Social History Housing: House Alcohol intake: current Patient Tobacco Use Status: Never used Tobacco e-Cigarette/Vaping Use: Never Used service: No Current occupational status: retired Cognitive needs: No Hearing needs: No Vision needs: Yes Questionnaire Thrive Questionnaire Date Thrive assessed: 04/14/23 KATE-7 AMB Questionnaire KATE-7 Date KATE - 7 assessed: 04/14/23 Source: Developed by Drs. Ramón Hou, Yolis Holden, Gordo Alvarado and colleagues, with an educational yadi from [employer]. Review of Systems Const Denies body aches, Denies fatigue, Denies fever(s), Denies headache(s) and Denies weakness ENT Denies dizziness, Denies headache(s), Denies nasal congestion, Denies nasal discharge and Denies sore throat Card Denies chest pain, Denies lightheadedness, Denies palpitations and Denies dyspnea Resp Denies chest congestion, Denies cough, Denies dyspnea and Denies wheezing GI Denies abdominal pain, Denies hematochezia, Denies change in bowel habits, Denies heartburn and Denies nausea Denies urinary frequency, Denies dysuria and Denies urinary urgency Musc Denies back pain, Denies myalgias, Denies arthralgias, Denies joint swelling and Reports stiffness Skin/Breast Denies lesions and Denies rash Neuro Denies dizziness, Denies headache(s) and Denies weakness Psych Reports as per HPI Endo Denies fatigue, Denies polydipsia, Denies polyuria and Denies palpitations Bakari/Lymph Denies easy bruising Aller/Immun Denies seasonal rhinorrhea and Denies wheezing Physical exam (Primary Care) Tobacco/Smoking Status: Tobacco use Status Tobacco use date assessed 10/22/23 10/22/23 10:26 Patient Tobacco Use Status Never used Tobacco 10/22/23 10:26 e-Cigarette/Vaping Use Never Used 10/22/23 10:26 Thrive Assessment: Date of Thrive Assessment Date Thrive assessed 04/14/23 10/22/23 10:26 Telehealth Telehealth Telehealth Platform: [facility] Location of provider rendering services: practice address Location of patient: address on file Patient Identification confirmed using: Name, : Yes Telehealth method: video Patient verbally consented to treatment: Yes Patient verbally consented to billing insurance company: Yes Patient informed of any privacy concerns related to visit: Yes Minutes spent on Phone/Video with Pt.: 15 Results Reviewed Results Reviewed: Name: Kolek,Summer E Age/Sex: 73/F : 1950 Unit#: [id number] Attend Dr: Audrey Teran MD Re10/14/23 Status: DEP REF Location: [facility] Disch: SPEC : [id number] [place]: 10/14/23 STATUS: COMP REQ : [id number] RECD: 10/14/[address]: Audrey Teran MD COMP: 10/14/23 ENTERED: 10/14/[address] [facility] [address]: ORDERED: Met Prof Fast, AST, ALT, Lipid Panel, Vitamin D 25-OH, Free T4, TSH Test Result Flag Reference Sodium 142 135-145 mmol/L Potassium 4.0 3.3-5.1 mmol/L CL 109 H 96-108 mmol/L CO2 26 22-29 mmol/L Gap 11 L 12-20 BUN 16 9-16 mg/dL Creat 1.07 0.5-1.4 mg/dL EGFR 50 NOTE: For -Australian individuals, multiply the result by 1.210. Chronic Kidney Disease: Estimated GFR < 60 mL/min/1.73m2 Severe Kidney Disease: Estimated GFR < 15 mL/min/1.73m2 FBS 91 60-99 mg/dL CA 9.6 8.4-10.2 mg/dL AST (GOT) 22 5-31 U/L ALT (GPT) 16 0-31 U/L Triglyceride 68 <150 mg/dL Desirable Triglyceride: less than 150 mg/dL Borderline High Triglyceride 150-199 mg/dL High Triglyceride: 200-499 mg/dL Very High Triglyceride: greater than or equal to 5OO mg/dL Cholesterol 167 <200 mg/dL Desirable Cholesterol: less than 200 mg/dL Borderline High Cholesterol: 200-239 mg/dL High Cholesterol: greater than 239 mg/dL LDL Calculated 95 <100 mg/dL Desirable LDL: less than 100 mg/dL Near Optimal/Above Optimal LDL: 110-129 mg/dL Borderline High LDL: 130-159 mg/dL High LDL: 160-189 mg/dL Very High LDL: greater than or equal to 190 mg/dL HDL 59 >40 mg/dL Desirable HDL: greater than 40 mg/dL Note: This HDL assay may give artificially low results in patients with liver disease. Vit D 25-OH Tot 77.2 >30 ng/mL Health Based Reference Values* < 20 ng/mL Deficient 20-30 ng/mL Insufficient > 30 ng/mL Sufficient *Marcos VEGAS. N Engl J Med. 2007;357:266-280 Care must be taken in interpreting Vitamin D results from different laboratories and methodologies. Published data demonstrated that results from patients undergoing hemodialysis may show a negative bias when tested with various automated 25-OH vitamin D assays when compared to LC-MS/MS. When testing samples from patients whose predominant form of Vitamin D is Vitamin D2, such as patients receiving Vitamin D2 supplementation, results that are subtherapeutic should be confirmed with another method such as LC-MS/MS. Free T4 0.93 0.71-1.85 ng/dL TSH 3rd Gen. 4.47 H 0.32-4.0 uIU/mL Note: A sustained TSH level above 2.5 uIU/mL may warrant further investigation. TSH 3rd Generation ([facility]) Assessment and Plan Assessment & Plan (1) Dyslipidemia: Code(s): E78.5 - Hyperlipidemia, unspecified Plan: Latest fasting lipids showed results within normal limits, with some improvement noted in her LDL cholesterol as compared to last check. Continue with rosuvastatin 10 mg once a day, in addition to adhering to a low-cholesterol diet and getting regular weight-bearing exercise. Will repeat another fasting lipid panel in six-month prior to her next appointment for physical in 04/2024 (2) Acquired hypothyroidism: Code(s): E03.9 - Hypothyroidism, unspecified Plan: Thyroid levels are within normal limits, feels well on current dose. will continue on Synthroid 50 mcg daily in a.m., refill sent recheck thyroid levels again in six-month Orders: Orders Alanine Aminotransferase 04/15/24 E03.9 - Hypothyroidism, unspecified, E78.5 - Hyperlipidemia, unspecified, M85.89 - Other specified disorders of bone density and structure, multiple sites, Z78.0 - Asymptomatic menopausal state Aspartate Amino Transferase 04/15/24 E03.9 - Hypothyroidism, unspecified, E78.5 - Hyperlipidemia, unspecified, M85.89 - Other specified disorders of bone density and structure, multiple sites, Z78.0 - Asymptomatic menopausal state Lipid Panel 04/15/24 E03.9 - Hypothyroidism, unspecified, E78.5 - Hyperlipidemia, unspecified, M85.89 - Other specified disorders of bone density and structure, multiple sites, Z78.0 - Asymptomatic menopausal state Vitamin D 25-OH Total 04/15/24 E03.9 - Hypothyroidism, unspecified, E78.5 - Hyperlipidemia, unspecified, M85.89 - Other specified disorders of bone density and structure, multiple sites, Z78.0 - Asymptomatic menopausal state Basic Metabolic Panel Fasting 04/15/24 E03.9 - Hypothyroidism, unspecified, E78.5 - Hyperlipidemia, unspecified, M85.89 - Other specified disorders of bone density and structure, multiple sites, Z78.0 - Asymptomatic menopausal state Medications: Refilled Synthroid (levothyroxine) 50 mcg PO QAM 90 tabs 3RF NS Coding Level of Care Code Tele Est Pt Level 4 (06842) Complex EM visit Add On G2211 Diagnoses Dyslipidemia E78.5 Acquired hypothyroidism E03.9
== END 2023-10-22 15:15 | disposition home or self-care (01) ==
LOC: HO.HMGC 10:27
PROVIDERS: PCP Internal Medicine; Visit Provider Internal Medicine
DX: E78.5 Hyperlipidemia, unspecified (principal); E03.9 Hypothyroidism, unspecified
CPT/HCPCS: 99214; G2211

== ENCOUNTER 2024-04-07 09:11 | Outpatient (REF) | payer MEDICARE, OTHER, SELFPAY | END 2024-04-07 09:12 | disposition home or self-care (01) | LOC: HO.MAMMO 09:11 | PROVIDERS: PCP Internal Medicine; Visit Provider Internal Medicine | DX: Z12.31 Encounter for screening mammogram for malignant neoplasm of breast (principal) | CPT/HCPCS: 77063; 77067 ==

== ENCOUNTER → 2024-04-07 09:30 | Outpatient (BNV) | payer MEDICARE, OTHER, SELFPAY | PROVIDERS: PCP Internal Medicine; Visit Provider Internal Medicine | DX: Z12.31 Encounter for screening mammogram for malignant neoplasm of breast (principal) | CPT/HCPCS: 77063; 77067 ==

== ENCOUNTER 2024-04-13 07:28 | Outpatient (REF) | payer MEDICARE, OTHER, SELFPAY ==
[2024-04-13 10:49] LABS: Alanine Aminotransferase 28 U/L (0-31); Anion Gap 11 (12-20); Aspartate Amino Transferase 33 U/L (5-31); Blood Urea Nitrogen 24 mg/dL (9-16); Calcium 9.4 mg/dL (8.4-10.2); Carbon Dioxide 26 mmol/L (22-29); Chloride 110 mmol/L (96-108); Cholesterol 170 mg/dL (<200); Estimated Glomerular Filt Rate 55; Glucose Fasting 87 mg/dL (60-99); HDL Cholesterol 65 mg/dL (>40); LDL Cholesterol Calculated 94 mg/dL (<100); Potassium 4.2 mmol/L (3.3-5.1); Sodium 143 mmol/L (135-145); Triglycerides 56 mg/dL (<150)
[2024-04-13 10:52] LABS: Vitamin D 25-OH Total 85.7 ng/mL (>30)
== END 2024-04-13 07:29 | disposition home or self-care (01) ==
LOC: HO.HMGCLDS 07:28
PROVIDERS: PCP Internal Medicine; Visit Provider Internal Medicine
DX: E78.5 Hyperlipidemia, unspecified (principal); E03.9 Hypothyroidism, unspecified; Z78.0 Asymptomatic menopausal state; M85.89 Other specified disorders of bone density and structure, multiple sites
CPT/HCPCS: 36415; 80048; 80061; 82306; 84450; 84460

== ENCOUNTER 2024-04-20 11:32 | Outpatient (AMB) | payer MEDICARE, OTHER, SELFPAY ==
--- NOTE | 2024-04-20 11:35 | A.OFFPC_ITS ---
Vital Signs 04/20/24 11:43 Height 5 ft 4 in Weight 190 lb BMI 32.6 BP 132/80 Blood Pressure Location Rt brachial Position Sitting Respiration 15 Pulse 94 Pulse Source Pulse Oximeter Temp 97.9 F Temp Source Oral Pulse Oximetry (%) 98 Oxygen Delivery Method Room Air Intake Visit Reasons: 6m follow up labs Intake Note: Pt is here today for her 6mo. f/u labs Allergies No Known Allergies Allergy (Verified 04/20/24 11:49) Medication List - Last Reconciled 04/20/24 by Audrey Teran MD acetaminophen ER (Tylenol Arthritis Pain) 650 mg PO Q12H cholecalciferol (vitamin D3) 25 mcg PO DAILY collagen (bovine) 100% 1 appl topical DAILY sfebzhsz-vealmub-ylgt-lutein tabs PO rosuvastatin 10 mg PO DAILY Synthroid (levothyroxine) 50 mcg PO QAM NS turmeric mg PO Tobacco use date assessed: 04/20/24 Fall risk assessment: 1 Fall in past year Last assessed Fall Risk: 04/20/24 Dental Screening Dental Screen Date: 04/20/24 Did you have a dental visit in the last 12 months?: Yes Did you have a dental problem in the last 6 months where you did not have access to dental care?: No Was dental information given to patient?: Patient has dentist HPI 6m follow up labs HPI Details 74-year-old lady with history of hypothy roidism and hyperlipidemia, here today for follow-up. She has been taking rosuvastatin 10 mg daily and Synthroid 50 mg once a day in a.m. an hour before breakfast. Patient states that she has been feeling well, no complaints at present time [facility] Medical History Osteopenia of multiple sites Left radial fracture Postmenopause Osteopenia of left femoral neck Dyslipidemia Acquired hypothyroidism Surgical History History of cataract surgery Family History Father No problems noted. Mother Alzheimer's disease Colon cancer Hyperlipidemia Social History Housing: House Alcohol intake: current Patient Tobacco Use Status: Never used Tobacco e-Cigarette/Vaping Use: Never Used service: No Current occupational status: retired Cognitive needs: No Hearing needs: No Vision needs: Yes Questionnaire PHQ-9 Over the last 2 weeks, how often have you been bothered by any of the following problems? 1. Little interest or pleasure in doing things: not at all 2. Feeling down, depressed, or hopeless: not at all 3. Trouble falling or staying asleep, or sleeping too much: not at all 4. Feeling tired or having little energy: not at all 5. Poor appetite or overeating: not at all 6. Feeling bad about yourself - or that you are a failure or have let yourself or your family down: not at all 7. Trouble concentrating on things, such as reading the newspaper or watching television: not at all 8. Moving or speaking so slowly that other people could have noticed. Or the opposite - being so fidgety or restless that you have been moving around a lot more than usual: not at all 9. Thoughts that you would be better off or of hurting yourself in some way: not at all Total score: 0 Depression Screening Interpretation: Negative Depression Screening Done: Yes 96209 - PHQ-9 Billing: Yes Source: Developed by Drs. Ramón Hou, Yolis Holden, Gordo Alvarado and colleagues, with an educational yadi from [employer]. Thrive Questionnaire Date Thrive assessed: 04/20/24 I am a: Patient What is your living situation today?: I have a steady place to live Within the past 12 months, did the food you bought not last and you didn't have the money to get more?: Never true Within the past 12 months, did you worry whether your food would run out before you got money to buy more?: Never true Do you have trouble paying for medicines?: No Do you have trouble getting transportation to medical appointments?: No Do you have trouble paying your heating and electricity bill?: No Do you have trouble taking care of your child, family member or friend?: No Do you have trouble with day-to-day activities such as bathing, preparing meals, shopping, managing finances, etc.?: No Are you currently unemployed and looking for a job?: I choose not to answer this question Are you interested in more education?: No Please select the resources that you would like help with: None Currently or been in a relationship where the following occur: No concerns reported THRIVE Score: 0 AUDIT C Alcohol Use Questionnaire (AUDIT-C) 1. How often do you have a drink containing alcohol?: Monthly or less 2. How many drinks containing alcohol do you have on a typical day when you are drinking?: 1 or 2 3. How often do you have six or more drinks on one occasion?: Never Total Score: 1 KATE-7 AMB Questionnaire KATE-7 Date KATE - 7 assessed: 04/20/24 Feeling nervous, anxious, or on edge: 0 = Not at all Not being able to stop or control worryin = Not at all Worrying too much about different things: 0 = Not at all Trouble relaxin = Not at all Being so restless that it is hard to sit still: 0 = Not at all Becoming easily annoyed or irritable: 0 = Not at all Feeling afraid as if something awful might happen: 0 = Not at all Total KATE-7 score (0-4 normal; 5-9 mild; 10-14 moderate; 15-21 severe): 0 Source: Developed by Drs. Ramón Hou, Yolis Holden, Gordo Alvarado and colleagues, with an educational yadi from [employer]. KATE-7 Assessment Billing KATE-7 Assessment Tool: KATE-7 Assessment 18456 Review of Systems Const Denies body aches, Denies fatigue, Denies headache(s) and Denies weakness ENT Denies dizziness, Denies headache(s) and Denies nasal congestion Card Denies chest pain, Denies lightheadedness, Denies palpitations and Denies dyspnea Resp Denies chest congestion, Denies cough, Denies dyspnea and Denies wheezing GI Denies abdominal pain, Denies change in bowel habits and Denies heartburn Denies urinary frequency, Denies dysuria and Denies urinary urgency Musc Denies back pain, Denies myalgias, Denies arthralgias, Denies joint swelling and Reports stiffness Skin/Breast Denies lesions and Denies rash Neuro Denies dizziness, Denies headache(s) and Denies weakness Psych Reports no additional complaints Endo Denies fatigue, Denies polydipsia, Denies polyuria and Denies palpitations Bakari/Lymph Denies easy bruising Aller/Immun Denies seasonal rhinorrhea and Denies wheezing Physical exam (Primary Care) Vital Signs: Last Vital Signs Temp 97.9 F 04/20/24 11:43 Pulse 94 04/20/24 11:43 Resp 15 04/20/24 11:43 BP 132/80 04/20/24 11:43 Pulse Ox 98 04/20/24 11:43 Oxygen Delivery Method Room Air 04/20/24 11:43 BMI result Body Mass Index 32.6 Tobacco/Smoking Status: Tobacco use Status Tobacco use date assessed 04/20/24 04/20/24 11:39 Patient Tobacco Use Status Never used Tobacco 04/20/24 11:39 e-Cigarette/Vaping Use Never Used 04/20/24 11:39 PHQ-9: PHQ-9 Score PHQ-9: Total score 0 04/20/24 11:50 Depression Screening Interpretation: Negative Thrive Assessment: Date of Thrive Assessment Date Thrive assessed 04/20/24 04/20/24 11:46 Currently or been in a relationship where the following occur: No concerns reported Const General: comfortable, no acute distress and alert Orientation/consciousness: patient oriented x3 HENMT Ears: external ears normal General nose exam: Normal external nose present Mouth: Normal oral and palatal mucosa present, oropharynx normal and moist mucous membranes Eyes General: appearance normal, both eyes and all related structures Neck Neck: Yes full ROM, Yes no lymphadenopathy and Yes supple Resp Effort & Inspection: normal respiratory effort and able to speak in complete sentences Auscultation: clear to auscultation bilaterally Cardio Rate: regular rate Rhythm: regular rhythm Heart sounds: S1 normal heart sound present and S2 normal heart sound present GI Palpation (GI): Soft to palpation, nontender and no masses Auscultation: normal bowel sounds Back/Spine/Pelvis Back: No back tenderness Neuro General: patient oriented x3, gait normal, tone normal, moves all extremities, Normal light touch and pain sensation and no focal motor deficits Cognition (Neuro): normal cognition Extrem General: Yes full ROM, Yes no joint enlargement, Yes no clubbing, cyanosis or edema and Yes no calf tenderness Psych Appearance: grossly normal and well kempt Mental Status: mental status grossly normal Speech and movement: Normal speech and movement present Affect: normal affect Attitude: cooperative Thought process: Normal thought process present Thought content: Normal thought content present Results Reviewed Results Reviewed: german: Summer Bradford Age/Sex: 74/F : 1950 Unit#: [id number] Attend Dr: Audrey Teran MD Re04/13/24 Status: DEP REF Location: [facility] Disch: SPEC : [id number] [place]: 04/13/24 STATUS: COMP REQ : [id number] RECD: 04/13/[address]: Audrey Teran MD COMP: 04/13/24 ENTERED: 04/13/[address]: ORDERED: Met Prof Fast, AST, ALT, Lipid Panel, Vitamin D 25-OH Test Result Flag Reference Sodium 143 135-145 mmol/L Potassium 4.2 3.3-5.1 mmol/L CL 110 H 96-108 mmol/L CO2 26 22-29 mmol/L Gap 11 L 12-20 BUN 24 H 9-16 mg/dL Creat 0.98 0.5-1.4 mg/dL eGFR 55 Chronic Kidney Disease: Estimated GFR < 60 mL/min/ 1.73m2 Severe Kidney Disease: Estimated GFR < 15 mL/min/1.73m2 FBS 87 60-99 mg/dL CA 9.4 8.4-10.2 mg/dL AST (GOT) 33 H 5-31 U/L ALT (GPT) 28 0-31 U/L Triglyceride 56 <150 mg/dL Desirable Triglyceride: less than 150 mg/dL Borderline High Triglyceride 150-199 mg/dL High Triglyceride: 200-499 mg/dL Very High Triglyceride: greater than or equal to 5OO mg/dL Cholesterol 170 <200 mg/dL Desirable Cholesterol: less than 200 mg/dL Borderline High Cholesterol: 200-239 mg/dL High Cholesterol: greater than 239 mg/dL LDL Calculated 94 <100 mg/dL Desirable LDL: less than 100 mg/dL Near Optimal/Above Optimal LDL: 110-129 mg/dL Borderline High LDL: 130-159 mg/dL High LDL: 160-189 mg/dL Very High LDL: greater than or equal to 190 mg/dL HDL 65 >40 mg/dL Desirable HDL: greater than 40 mg/dL Note: This HDL assay may give artificially low results in patients with liver disease. Vit D 25-OH Tot 85.7 >30 ng/mL Health Based Reference Values* < 20 ng/mL Deficient 20-30 ng/mL Insufficient > 30 ng/mL Sufficient Coding Level of Care Code Est Pt Level 4 (54933) Complex EM visit Add On G2211 Diagnoses Acquired hypothyroidism E03.9 Dyslipidemia E78.5 Osteopenia of multiple sites M85.89 Additional Codes KATE-7 Assessment Billing - KATE-7 Assessment Tool: KATE-7 Assessment 32528 ([id number]) PHQ-9 - 76110 - PHQ-9 Billing: Yes ([id number]) Assessment & Plan Assessment & Plan (1) Acquired hypothyroidism: Code(s): E03.9 - Hypothyroidism, unspecified Category: Medical Plan: Recent thyroid levels are within normal limits, continued on Synthroid 50 mcg daily in a.m. an hour before breakfast. Repeat another thyroid level in six- months (2) Dyslipidemia: Code(s): E78.5 - Hyperlipidemia, unspecified Category: Medical Plan: Reviewed recent fasting lipid profile with patient with levels within normal limits . Continue rosuvastatin 10 mg daily , in addition to adherence to low-cholesterol diet and regular exercise, at least 30 minutes 3 to 4 times a week. Advised patient to make healthy food choices, eat more fruits, vegetables, whole grains, wild caught fish and low-fat dairy. Limit amount of meat and fried or fatty food products, as well as processed foods and fast foods. Follow-up scheduled with repeat fasting lipid panel in 6 months. (3) Osteopenia of multiple sites: Code(s): M85.89 - Other specified disorders of bone density and structure, multiple sites Category: Medical Plan: Continue with regular weight-bearing exercise, vitamin-D 3 supplements take adequate calcium from dietary sources. Will repeat another bone density scan next year Orders: Orders Thyroid Stimulating Hormone 10/14/24 E03.9 - Hypothyroidism, unspecified, E78.5 - Hyperlipidemia, unspecified, M85.89 - Other specified disorders of bone density and structure, multiple sites, Z78.0 - Asymptomatic menopausal state Free T4 (Free Thyroxine) 10/14/24 E03.9 - Hypothyroidism, unspecified, E78.5 - Hyperlipidemia, unspecified, M85.89 - Other specified disorders of bone density and structure, multiple sites, Z78.0 - Asymptomatic menopausal state Vitamin D 25-OH Total 10/14/24 E03.9 - Hypothyroidism, unspecified, E78.5 - Hyperlipidemia, unspecified, M85.89 - Other specified disorders of bone density and structure, multiple sites, Z78.0 - Asymptomatic menopausal state Lipid Panel 10/14/24 E03.9 - Hypothyroidism, unspecified, E78.5 - Hyperlipidemia, unspecified, M85.89 - Other specified disorders of bone density and structure, multiple sites, Z78.0 - Asymptomatic menopausal state Basic Metabolic Panel Fasting 10/14/24 E03.9 - Hypothyroidism, unspecified, E78.5 - Hyperlipidemia, unspecified, M85.89 - Other specified disorders of bone density and structure, multiple sites, Z78.0 - Asymptomatic menopausal state Aspartate Amino Transferase 10/14/24 E03.9 - Hypothyroidism, unspecified, E78.5 - Hyperlipidemia, unspecified, M85.89 - Other specified disorders of bone density and structure, multiple sites, Z78.0 - Asymptomatic menopausal state Alanine Aminotransferase 10/14/24 E03.9 - Hypothyroidism, unspecified, E78.5 - Hyperlipidemia, unspecified, M85.89 - Other specified disorders of bone density and structure, multiple sites, Z78.0 - Asymptomatic menopausal state
[2024-04-20 11:43] VITALS: BP 132/80; PULSE 94; RESP 15; TEMP 36.6; O2SAT 98; BMI 32.6
== END 2024-04-20 12:09 | disposition home or self-care (01) ==
PROVIDERS: PCP Internal Medicine; Visit Provider Internal Medicine
DX: E03.9 Hypothyroidism, unspecified (principal); E78.5 Hyperlipidemia, unspecified; M85.89 Other specified disorders of bone density and structure, multiple sites

== ENCOUNTER → 2024-04-20 11:32 | Outpatient (BNVA) | payer MEDICARE, OTHER, SELFPAY | PROVIDERS: PCP Internal Medicine; Visit Provider Internal Medicine | DX: E03.9 Hypothyroidism, unspecified (principal); E78.5 Hyperlipidemia, unspecified; M85.89 Other specified disorders of bone density and structure, multiple sites | CPT/HCPCS: 96127; 99212 ==

== ENCOUNTER 2024-11-09 07:24 | Outpatient (REF) | payer MEDICARE, OTHER, SELFPAY ==
--- OUTSIDE RECORDS SUMMARY | 2024-11-09 07:28 | XMS_ITS | Patient Health Record ---
Author Organization [facility] Address [address] [place] [address] Care Team Providers Care Patient Educator Name Role Phone Parul FALCON, Audrey Primary Care Provider Ramón Jordan Unavailable [phone] Reason For Referral No Information Medications Medication SIG (Take, Route, Frequency, Duration) Notes Start Date End Date Status Vitamin D 1000 UNIT 1 tablet Orally Once a day Active Multivitamin Adults 50+ - Orally Active Synthroid 50 MCG TK 1 T PO D Oral for 90 Active Rosuvastatin Calcium 10 MG TAKE 1 TABLET BY MOUTH EVERY DAY Oral for 30 Active Immunizations Vaccine Route Administration Date Status Comme nts Influenza Unknown 11/16/2015 Administered Social History Tobacco Use: Social History Observation Description Date Details (start date - stop date) Never Smoker NA - NA Tobacco Use/Smoking Question Answer Notes Patient is a nonsmoker Alcohol Screen Question Answer Notes Did you have a drink contain ing alcohol in the past year? Yes How often did you have a dri nk containing alcohol in the past year? Monthly or less (1 point) How many drinks did you have on a typical day when you were drinking in the past year? 1 or 2 drinks (0 point) How often did you have 6 or more drinks on one occasion in the past year? Never (0 point) Points 1 Interpretation Negative Section Notes: Nonsmoker; no sig alcohol Problems Problem Type SNOMED Code ICD Code Onset Dates Problem Status W/U Status Risk Notes Problem 335320712 Encounter for screening for malignant neoplasm of colon (Z12.11) Active confirmed Problem 570594775 Preprocedural examination (Z01.818) Active confirmed Plan Of Treatment Future Test Test Name Order Date COLONOSCOPY 11/11/2016 Insurance Providers Payer Name Payer Address Payer Phone Subscriber Number Group Number Insured Name Patient Relationship to Insured Coverage Start Date Coverage End Date MEDICARE OF [place] [address] [place] [address] [id number] GAGANDEEP GARZA Self - patient is the insured [facility] [address] [place] [phone] [id number] GAGANDEEP GARZA Self - patient is the insured Medical (General) History Medical History History ICD Code Denies [place],DM,CVA,Lung disease,renal dise ase Arthritis Hypothyroidism Hyperlipidemia Screening colonoscopy in 2006--hyperplastic polyp, diverticulosis, internal hemorrhoids Surgical History Surgery Date(Month/Year) Cataracts
[2024-11-09 10:58] LABS: Alanine Aminotransferase 17 U/L (0-31); Anion Gap 8 (12-20); Aspartate Amino Transferase 29 U/L (5-31); Blood Urea Nitrogen 18 mg/dL (9-16); Calcium 9.7 mg/dL (8.4-10.2); Carbon Dioxide 30 mmol/L (22-29); Chloride 108 mmol/L (96-108); Cholesterol 177 mg/dL (<200); Estimated Glomerular Filt Rate 49; HDL Cholesterol 60 mg/dL (>40); Potassium 4.3 mmol/L (3.3-5.1); Sodium 142 mmol/L (135-145); Triglycerides 80 mg/dL (<150)
[2024-11-09 11:24] LABS: Free T4 (Free Thyroxine) 1.07 ng/dL (0.71-1.85); Thyroid Stimulating Hormone 3.24 uIU/mL (0.32-4.0)
== END 2024-11-09 07:25 | disposition home or self-care (01) ==
LOC: HO.HMGCLDS 07:24
PROVIDERS: PCP Internal Medicine; Visit Provider Internal Medicine
DX: M85.89 Other specified disorders of bone density and structure, multiple sites (principal); E78.5 Hyperlipidemia, unspecified; E03.9 Hypothyroidism, unspecified; Z78.0 Asymptomatic menopausal state
CPT/HCPCS: 36415; 80048; 80061; 82306; 84439; 84443; 84450; 84460

== ENCOUNTER 2024-11-13 10:33 | Outpatient (AMB) | payer MEDICARE, OTHER, SELFPAY ==
[2024-11-13 10:35] VITALS: BP 124/76; PULSE 78; O2SAT 99; BMI 32.1
--- NOTE | 2024-11-13 10:35 | A.OFFVIS_ITS ---
Intake Vital Signs 11/13/24 10:35 Height 5 ft 4 in Weight 187 lb BMI 32.1 BP 124/76 Blood Pressure Location Rt brachial Position Sitting Pulse 78 Pulse Source Pulse Oximeter Pulse Oximetry (%) 99 Oxygen Delivery Method Room Air Intake Visit Reasons: Deon G0439 Construction Tech Required: No Allergies No Known Allergies Allergy (Verified 11/13/24 11:15) Medication List - Last Reconciled 11/13/24 by Audrey Teran MD acetaminophen ER (Tylenol Arthritis Pain) 650 mg PO Q12H cholecalciferol (vitamin D3) 25 mcg PO DAILY collagen (bovine) 100% 1 appl topical DAILY fflscgvj-ybqdova-rabw-lutein tabs PO rosuvastatin 10 mg PO DAILY Synthroid (levothyroxine) 50 mcg PO QAM NS turmeric mg PO Do you need a note to return to daycare/school/sports/work: No HPI [facility] G0439 HPI Details 74 year-old lady presents for subsequent annual wellness visit.? She has dyslipidemia currently controlled on rosuvastatin with latest fasting lipids done 11/09/2024 within normal limits. Currently on, Synthroid for her hypothyroidism, with last thyroid levels within normal limits. She is up-to-date with her screening mammogram done 04/07/2024 which showed normal findings, last bone density was done 04/01/2023 which showed presence of osteopenia in both left femoral neck and left femur. No history of fractures Up-to-date with her screening colonoscopy done 01/19/2017 which showed negative findings, to be repeated again in 2026. Up-to-date with her vaccines, gets yearly flu shots, up-to-date with her pneumococcal vaccinations and Shingrix. Due for a tetanus booster Has not yet had her COVID booster or RSV vaccination. Latest fasting lipids and fasting blood sugar done 11/09/2024 showed normal results. ? Medical / Social History Reviewed? Past Medical History ?Yes . ? [place] of Care / Care Team list updated ?Yes . ? Surgical/Hospitalization History ?Yes . ? Current Medications (including OTC and supplements) ?Yes . ? Family History ?Yes . ? Tobacco Control form ?Yes . ? AUDIT-C (Alcohol use) form ?Yes . ? Illicit drug use in Social History ?Yes . ? Current diagnosis of depression? ?No ? Appropriate PHQ2/PHQ9 completed ?Yes . ? Data entered by ?Load Test Mechanic and reviewed by provider ? Fall Risk ? Fall History? Have you had any falls with injury in the past year? ?No . ? Have you had two or more falls in the past year? ?No . ? Fall Risk Assessment: ?No falls in the past year . ? HRA filled out by the patient, reviewed by Provider and scanned. ?SWV ? Balance? Romberg ?negative ? Tandem walk ?Yes . ? Walk and Turn ?Yes . ? Rise from sit to stand ?Yes . ?Vision? Corrective lens ?Yes ? Vision screen ? Up-to-date, sees Dr Darling ?Hearing? Whisper test ?pass . ?Written Plan?Completed. See Patient Documents.? Already completed her MOLST form and healthcare proxy form, copy in medical record. [facility] Medical History Osteopenia of multiple sites Left radial fracture Postmenopause Osteopenia of left femoral neck Dyslipidemia Acquired hypothyroidism Surgical History History of cataract surgery Family History Father No problems noted. Mother Alzheimer's disease Colon cancer Hyperlipidemia Social History Housing: House Alcohol intake: current Patient Tobacco Use Status: Never used Tobacco e-Cigarette/Vaping Use: Never Used service: No Current occupational status: retired Cognitive needs: No Hearing needs: No Vision needs: Yes Questionnaire Medicare Wellness Checkup [age] What gender do you identify with?: female During the past 4 weeks, how much have you been bothered by emotional problems such as feeling anxious, depressed, irritable, sad or downhearted, and blue?: not at all During the past 4 weeks, has your physical & emotional health limited your social activities with family, friends, neighbors, or groups?: not at all During the past 4 weeks, how much bodily pain have you generally had?: very mild pain During the past 4 weeks, was someone available to help you if you needed & wanted help?: yes, as much as I wanted During the past 4 weeks, what was the hardest physical activity you could do for at least 2 minutes?: moderate Can you get to places out of walking distance without help? (For eg., can you travel alone on buses, taxis or drive your car?): Yes Can you go shopping for groceries or clothes without someone's help?: Yes Can you prepare your own meals?: Yes Can you do your housework without help?: Yes Because of any health problems, do you need the help of another person with your personal care needs such as eating, bathing, dressing or getting around the house?: No Can you handle your own money without help?: Yes During the past 4 weeks, how would you rate your health in general?: good During the past 4 weeks how have things been going for you?: very well; could hardly better Are you having difficulties driving your car?: no Do you always fasten your seat belt when you are in a car?: yes, usually During past 4 weeks, have you been bothered by the following: never: Falling or dizzy when standing up, Sexual problems?, Trouble eating well?, Teeth or denture problems? and Problems using the telephone? and seldom: Tiredness or fatigue? Have you fallen 2 or more times in the past year?: No Are you afraid of falling?: No Are you a smoker?: no During the past 4 weeks, how many drinks of wine, beer, or other alcoholic beverages did you have?: 1 drink or less per week Do you exercise for about 20 minutes 3 or more times a week?: no, I usually do not exercise this much Have you been given information to help with the following?: yes: Hazards in your house that might hurt you? and yes: Keeping track of your medications? How often do you have trouble taking medicines the way you have been told to take them?: I always take medicine as prescribed How confident are you that you can control & manage most of your health problems?: very confident What is your race?: White Mini Mental State Exam (MMSE) Orientation What is the (year) (season) (date) (day) (month)?: year (2024), season (fall), date (11/13/2024), day (Wednesday) and month (October) Where are we (state) (county) (town or city) (hospital) (floor)?: state ([place]), [facility] ([place]), town or city ([place]) and hospital/clinic ([facility]) Score Score: 9 Activity of Daily Living Bathing - sponge bath, tub bath or shower: receives no assistance (gets in/out by self, if usual bathing means Dressing - getting clothes from closets & drawers, including inner/outer garments & fasteners.: gets clothes & gets completely dressed without help Toileting - going to the 'toilet room' for urine/bowel elimination & cleaning self/arranging clothes: goes to toilet room, cleans self, arranges clothes without help Transfer: moves in & out of bed and chair without help (may use support object) Continence: controls urination/bowel movements completely by self Feeding: feeds self without help Total Score: 0 Information obtained from: patient Using telephone: independent Traveling: independent Shopping: independent Preparing meals: independent Housework: independent Taking medicine: independent Managing money: independent PHQ-9 Over the last 2 weeks, how often have you been bothered by any of the following problems? 1. Little interest or pleasure in doing things: not at all 2. Feeling down, depressed, or hopeless: not at all 3. Trouble falling or staying asleep, or sleeping too much: not at all 4. Feeling tired or having little energy: not at all 5. Poor appetite or overeating: not at all 6. Feeling bad about yourself - or that you are a failure or have let yourself or your family down: not at all 7. Trouble concentrating on things, such as reading the newspaper or watching television: not at all 8. Moving or speaking so slowly that other people could have noticed. Or the opposite - being so fidgety or restless that you have been moving around a lot more than usual: not at all 9. Thoughts that you would be better off or of hurting yourself in some way: not at all Total score: 0 Depression Screening Interpretation: Negative Depression Screening Done: Yes 90168 - PHQ-9 Billing: Yes Source: Developed by Drs. Ramón Hou, Yolis Holden, Gordo Alvarado and colleagues, with an educational yadi from [employer]. KATE-7 AMB Questionnaire KATE-7 Date KATE - 7 assessed: 11/13/24 Feeling nervous, anxious, or on edge: 0 = Not at all Not being able to stop or control worryin = Not at all Worrying too much about different things: 0 = Not at all Trouble relaxin = Not at all Being so restless that it is hard to sit still: 0 = Not at all Becoming easily annoyed or irritable: 0 = Not at all Feeling afraid as if something awful might happen: 0 = Not at all Total KATE-7 score (0-4 normal; 5-9 mild; 10-14 moderate; 15-21 severe): 0 Source: Developed by Drs. Ramón Hou, Yolis Holden, Gordo Alvarado and colleagues, with an educational yadi from [employer]. KATE-7 Assessment Billing KATE-7 Assessment Tool: KATE-7 Assessment 31905 Physical Exam Vital Signs: Last Vital Signs Pulse 78 11/13/24 10:35 BP 124/76 11/13/24 10:35 Pulse Ox 99 11/13/24 10:35 Oxygen Delivery Method Room Air 11/13/24 10:35 BMI result Body Mass Index 32.1 Results Reviewed Results Reviewed: Name: Summer Bradford Age/Sex: 74/F : 1950 Unit#: [id number] Attend Dr: Audrey Teran MD Re11/09/24 Status: DEP REF Location: [facility] Disch: SPEC : [id number] [place]: 11/09/24 STATUS: COMP REQ : [id number] RECD: 11/09/24-[address]: Audrey Teran MD COMP: 11/09/24 ENTERED: 11/09/[address]: ORDERED: Met Prof Fast, AST, ALT, Lipid Panel, Vitamin D 25-OH, Free T4, TSH Test Result Flag Reference Sodium 142 135-145 mmol/L Potassium 4.3 3.3-5.1 mmol/L CL 108 96-108 mmol/L CO2 30 H 22-29 mmol/L Gap 8 L 12-20 BUN 18 H 9-16 mg/dL Creat 1.09 0.5-1.4 mg/dL eGFR 49 Chronic Kidney Disease: Estimated GFR < 60 mL/min/1.73m2 Severe Kidney Disease: Estimated GFR < 15 mL/min/1.73m2 FBS 89 60-99 mg/dL CA 9.7 8.4-10.2 mg/dL AST (GOT) 29 5-31 U/L ALT (GPT) 17 0-31 U/L Triglyceride 80 <150 mg/dL Desirable Triglyceride: less than 150 mg/dL Borderline High Triglyceride 150-199 mg/dL High Triglyceride: 200-499 mg/dL Very High Triglyceride: greater than or equal to 5OO mg/dL Cholesterol 177 <200 mg/dL Desirable Cholesterol: less than 200 mg/dL Borderline High Cholesterol: 200-239 mg/dL High Cholesterol: greater than 239 mg/dL LDL Calculated 101 H <100 mg/dL Desirable LDL: less than 100 mg/dL Near Optimal/Above Optimal LDL: 110-129 mg/dL Borderline High LDL: 130-159 mg/dL High LDL: 160-189 mg/dL Very High LDL: greater than or equal to 190 mg/dL HDL 60 >40 mg/dL Desirable HDL: greater than 40 mg/dL Note: This HDL assay may give artificially low results in patients with liver disease. Vitamin D 25-OH 89.8 >30 ng/mL Health Based Reference Values* < 20 ng/mL Deficient 20-30 ng/mL Insufficient > 30 ng/mL Sufficient *Marcos VEGAS. N Engl J Med. 2007;357:266-280 There is no well-established upper level of normal vitamin D levels. Some laboratories use 50 ng/mL as an upper limit of normal. However, toxicity is patient-dependent and may occur at any level. Careful correlation with the patient's presentation is necessary and, if there is concern for vitamin D toxicity, treatment should be considered irrespective of the serum level. Care must be taken in interpreting Vitamin D results f rom different laboratories and methodologies. Published data demonstrated that results from patients undergoing hemodialysis may show a negative bias when tested with various automated 25-OH vitamin D assays when compared to LC-MS/MS. When testing samples from patients whose predominant form of Vitamin D is Vitamin D2, such as patients receiving Vitamin D2 supplementation, results that are subtherapeutic should be confirmed with another method such as LC-MS/MS. Free T4 1.07 0.71-1.85 ng/dL TSH 3rd Gen. 3.24 0.32-4.0 uIU/mL Note: A sustained TSH level above 2.5 uIU/mL may warrant further investigation. TSH 3rd Generation ([facility]) Assessment & Plan Assessment & Plan (1) Encounter for annual wellness visit (AWV) in Medicare patient: Code(s): Z00.00 - Encounter for general adult medical examination without abnormal findings Plan: Medical wellness checklist reviewed, discussed with patient and updated. U p-to-date with her advanced directives and vaccines, reminded to get her flu shot and tetanus booster. Does not want to get a COVID vaccine booster anymore. (2) Dyslipidemia: Code(s): E78.5 - Hyperlipidemia, unspecified Plan: Stable and controlled on rosuvastatin 10 mg daily (3) Acquired hypothyroidism: Code(s): E03.9 - Hypothyroidism, unspecified Plan: Continue current dose of Synthroid at 50 mcg daily in a.m. (4) Osteopenia of multiple sites: Code(s): M85.89 - Other specified disorders of bone density and structure, multiple sites Plan: Continue doing regular weight-bearing exercise, take vitamin-D supplements and adequate calcium from dietary sources repeat bone density scan scan to be scheduled next year Quality Reporting (2019) Depression/Bipolar (159/160/161/177) PHQ-9: Total score: 0 Coding Level of Care Code Medicare Subsequent (G0439) Diagnoses Encounter for annual wellness visit (AWV) in Medicare patient Z00.00 Dyslipidemia E78.5 Acquired hypothyroidism E03.9 Osteopenia of multiple sites M85.89 CPT Codes Advance Care Planning - Advance Care Planning discussion: On file, no changes ([id number]) Advance Care Planning - Time spent: 1-15 minutes, on File ([id number]) Additional Codes KATE-7 Assessment Billing - KATE-7 Assessment Tool: KATE-7 Assessment 59620 ([id number]) PHQ-9 - 63585 - PHQ-9 Billing: Yes ([id number]) Advance Care Planning Advance Care Planning discussion: On file, no changes Date of discussion: 11/13/24 Who was present: patient Forms completed: Health Care Proxy and MOLST Time spent: 1-15 minutes, on File Actual minutes spent: 1
--- OUTSIDE RECORDS SUMMARY | 2024-11-13 11:50 | XMS_ITS | Patient Health Record ---
Author Organization [facility] Address [address] [place] [address] Care Team Providers Care Switcher Name Role Phone Parul FALCON, Audrey Primary Care Provider Ramón Jordan Unavailable [phone] Reason For Referral No Information Medications Medication [...] Problem Status W/U Status Risk Notes Problem [id number] Encounter for screening for malignant neoplasm of colon (Z12.11) Active confirmed Problem [id number] Preprocedural examination (Z01.818) Active confirmed Plan Of Treatment Future Test Test Name Order Date COLONOSCOPY 11/11/2016 Insurance Providers Payer Name Payer Address Payer Phone Subscriber Number Group Number Insured Name Patient Relationship to Insured Coverage Start Date Coverage End Date MEDICARE OF [place] [address] [place] [address] [id number] GAGANDEEP GARZA Self - patient is the insured [facility] [address] [place] [phone] [id number] GAGANDEEP GARZA Self - patient is the insured Medical (General) History Medical History History ICD Code Denies HI,DM,CVA,Lung disease,renal dise ase Arthritis Hypothyroidism Hyperlipidemia Screening colonoscopy in 2006--hyperplastic polyp, diverticulosis, internal hemorrhoids Surgical History Surgery Date(Month/Year) Cataracts
== END 2024-11-13 11:59 | disposition home or self-care (01) ==
LOC: HO.HMCC 10:34
PROVIDERS: PCP Internal Medicine; Visit Provider Internal Medicine
DX: Z00.00 Encounter for general adult medical examination without abnormal findings (principal); E78.5 Hyperlipidemia, unspecified; E03.9 Hypothyroidism, unspecified; M85.89 Other specified disorders of bone density and structure, multiple sites

== ENCOUNTER → 2024-11-13 10:33 | Outpatient (BNVA) | payer MEDICARE, OTHER, SELFPAY | PROVIDERS: PCP Internal Medicine; Visit Provider Internal Medicine | DX: Z00.00 Encounter for general adult medical examination without abnormal findings (principal); E03.9 Hypothyroidism, unspecified; E78.5 Hyperlipidemia, unspecified; M85.89 Other specified disorders of bone density and structure, multiple sites; Z79.899 Other long term (current) drug therapy | CPT/HCPCS: 96127 ==

== ENCOUNTER 2024-12-26 09:28 | Outpatient (AMB) | payer MEDICARE, OTHER, SELFPAY ==
[2024-12-26 09:35] VITALS: BP 134/78; PULSE 108; O2SAT 96; BMI 31.2
--- NOTE | 2024-12-26 09:35 | MHC.OFFWIV ---
Intake Vital Signs 12/26/24 09:35 Height 5 ft 4 in Weight 182 lb BMI 31.2 BP 134/78 Blood Pressure Location Lt brachial Position Sitting Pulse 108 H Pulse Source Pulse Oximeter Pulse Oximetry (%) 96 Oxygen Delivery Method Room Air Intake Visit Reasons: EP-b/l calf & foot pain Intake Note: Patient presents with c/o left calf/poe pain - on & off x couple weeks. Patient Tobacco Use Status: Never used Tobacco Allergies No Known Allergies Allergy (Verified 12/26/24 09:39) Medication List - Last Reconciled 12/26/24 by Norman Rico MD acetaminophen ER (Tylenol Arthritis Pain) 650 mg PO Q12H cholecalciferol (vitamin D3) 25 mcg PO DAILY collagen (bovine) 100% 1 appl topical DAILY jlnjpnaw-ukxthml-ibzb-lutein tabs PO rosuvastatin 10 mg PO DAILY Synthroid (levothyroxine) 50 mcg PO QAM NS turmeric mg PO Do you need a note to return to daycare/school/sports/work: No HPI EP-b/l calf & foot pain HPI Details History of Present Illness The patient is a 74-year-old female presenting with difficulty walking and left leg pain. Severe osteoarthritis of the left knee: - The patient has a history of severe osteoarthritis in the left knee, which causes a chronic limp because she is unable to fully straighten the leg. - The patient reports new difficulty walking upon getting up and pain in the poe area of her left leg. - She denies significant pain in the knee itself but notes the joint feels unstable. - She was evaluated by an social media content specialist a long time ago who offered surgery, but she declined at the time due to a lack of pain. - A prior x-ray was done in 2021. - She occasionally takes Tylenol for pain if she has to do a lot of activity. Medical History: - Severe osteoarthritis of the left knee Problem List - Severe osteoarthritis of the left knee - Gait abnormality - Myalgia of the left leg Plan - A referral will be placed for an orthopedic consultation [facility] to evaluate the patient's left knee instability and worsening gait. - An updated x-ray of the left knee will be ordered for the social media content specialist. - The patient was educated that knee instability, not just pain, is an indication for knee replacement surgery, which the orthopedist may discuss. - The patient may use a temporary knee brace (such as a pull-on or Velcro type) for support, though it was explained that this is not a long-term solution. - The patient was reassured that there are no signs of a blood clot in the leg. - Continue Tylenol as needed for pain. Review of Systems - General: No fever no chills - Neurological: No headaches no dizziness - Ear nose throat: No sore throat no hearing difficulty no ear pain - Cardiovascular: No syncope, no chest pain, no palpitations - Gastrointestinal: No nausea vomiting or diarrhea Physical Exam General: No acute distress HEENT: No acute findings Neck: Supple Respiratory system: Able to talk in full sentences, no audible wheeze Extremities: Limping due to left knee instability, no clot detected on calf palpation, Homans sign negative CLAIMS SUPERVISOR: Alert awake oriented x3 motor intact Skin: Normal turgor [facility] Medical History Osteopenia of multiple sites Left radial fracture Postmenopause Osteopenia of left femoral neck Dyslipidemia Acquired hypothyroidism Surgical History History of cataract surgery Family History Father No problems noted. Mother Alzheimer's disease Colon cancer Hyperlipidemia Social History Housing: House Alcohol intake: current Patient Tobacco Use Status: Never used Tobacco e-Cigarette/Vaping Use: Never Used service: No Current occupational status: retired Cognitive needs: No Hearing needs: No Vision needs: Yes Physical Exam Vital Signs: Last Vital Signs Pulse 108 H 12/26/24 09:35 BP 134/78 12/26/24 09:35 Pulse Ox 96 12/26/24 09:35 Oxygen Delivery Method Room Air 12/26/24 09:35 BMI result Body Mass Index 31.2 Assessment & Plan Assessment & Plan (1) Internal derangement of left knee: Code(s): M23.92 - Unspecified internal derangement of left knee Plan Severe osteoarthritis of the left knee: - The patient has a history of severe osteoarthritis in the left knee, which causes a chronic limp because she is unable to fully straighten the leg. - The patient reports new difficulty walking upon getting up and pain in the poe area of her left leg. - She denies significant pain in the knee itself but notes the joint feels unstable. - She was evaluated by an social media content specialist a long time ago who offered surgery, but she declined at the time due to a lack of pain. - A prior x-ray was done in 2021. - She occasionally takes Tylenol for pain if she has to do a lot of activity. Medical History: - Severe osteoarthritis of the left knee Problem List - Severe osteoarthritis of the left knee - Gait abnormality - Myalgia of the left leg Plan - A referral will be placed for an orthopedic consultation [facility] to evaluate the patient's left knee instability and worsening gait. - An updated x-ray of the left knee will be ordered for the social media content specialist. - The patient was educated that knee instability, not just pain, is an indication for knee replacement surgery, which the orthopedist may discuss. - The patient may use a temporary knee brace (such as a pull-on or Velcro type) for support, though it was explained that this is not a long-term solution. - The patient was reassured that there are no signs of a blood clot in the leg. - Continue Tylenol as needed for pain. Orders: Referrals Orthopedics Referral M23.92 - Unspecified internal derangement of left knee Coding Level of Care Code Est Pt Level 3 (25163) Diagnoses Internal derangement of left knee M23.92
--- OUTSIDE RECORDS SUMMARY | 2024-12-26 10:19 | XMS_ITS | Patient Health Record ---
Author Organization [facility] Address [address] [place] [address] Care Team Providers Care Real Estate Leasing Manager Name Role Phone Parul FALCON, Audrey Primary Care Provider Ramón Jordan Unavailable [phone] Reason For Referral No Information Medications Medication SIG (Take, Route, Frequency, Duration) Notes Start Date End Date Status Vitamin D 1000 UNIT 1 tablet Orally Once a day Active Multivitamin Adults 50+ - Orally Active Synthroid 50 MCG TK 1 T PO D Oral; Duration: 90 Active Rosuvastatin Calcium 10 MG TAKE 1 TABLET BY MOUTH EVERY DAY Oral; Duration: 30 Active Immunizations Vaccine Route Administration Date [...] Problem Status W/U Status Risk Notes Problem Screening for malignant neoplasm of colon (420528052) Encounter for screening for malignant neoplasm of colon (Z12.11) Active confirmed Problem Preprocedural examination ([id number]) Preprocedural examination (Z01.818) Active confirmed Plan Of Treatment Future Test Test Name Order Date COLONOSCOPY 11/11/2016 Insurance Providers Payer Name Payer Address Payer Phone Subscriber Number Group Number Insured Name Patient Relationship to Insured Coverage Start Date Coverage End Date MEDICARE OF [place] [address] [place] [address] [id number] GAGANDEEP GARZA Self - patient is the insured [facility] [address] [place] [phone] [id number] GAGANDEEP GARZA Self - patient is the insured Medical (General) History Medical History History ICD Code Denies [place],DM,CVA,Lung disease,renal dise ase Arthritis Hypothyroidism Hyperlipidemia Screening colonoscopy in 2006--hyperplastic polyp, diverticulosis, internal hemorrhoids Surgical History Surgery Date(Month/Year) Cataracts
== END 2024-12-26 09:54 | disposition home or self-care (01) ==
PROVIDERS: PCP Internal Medicine; Visit Provider Internal Medicine
DX: M23.92 Unspecified internal derangement of left knee (principal)

== ENCOUNTER → 2024-12-26 09:28 | Outpatient (BNVA) | payer MEDICARE, OTHER, SELFPAY | PROVIDERS: PCP Internal Medicine; Visit Provider Internal Medicine | DX: M23.92 Unspecified internal derangement of left knee (principal) | CPT/HCPCS: 99212 ==